=== PATIENT | male | born 1975 | race African-American/Black ===

== ENCOUNTER 2020-03-26 11:58 | Outpatient (REF) | payer MEDICARE, MEDICAID, SELFPAY ==
--- NOTE | 2020-03-26 | US_ITS ---
EXAMINATION: US RETROPERITONEAL LIMITED (RENAL ONLY) CLINICAL INFORMATION: Nephrolithiasis.. COMPARISON: None TECHNIQUE: Routine grayscale imaging of kidneys was performed. FINDINGS: RIGHT KIDNEY: 10.8 x 4.1 x 6.1 cm (SAG x AP x TRV). The kidney is normal in size, contour, and echogenicity. Renal cortical thickness is normal. No calculi or focal parenchymal lesions. No hydronephrosis. LEFT KIDNEY: 11.1 x 6.6 x 5.3 cm (SAG x AP x TRV). The kidney is normal in size, contour, and echogenicity. Renal cortical thickness is normal. No calculi or focal parenchymal lesions. No hydronephrosis. US/US renal BI IMPRESSION: Unremarkable renal ultrasound.
== END 2020-03-26 11:59 | disposition home or self-care (01) ==
LOC: HO.US 11:58
PROVIDERS: PCP Internal Medicine; Visit Provider Urology
DX: N20.0 Calculus of kidney (principal)
CPT/HCPCS: 76775

== ENCOUNTER 2020-07-09 09:08 | Emergency (ER) | payer OTHER, SELFPAY ==
[2020-07-09 09:45] VITALS: BP 108/71; PULSE 70; RESP 16; TEMP 37.1; O2SAT 97; BMI 23.1
[2020-07-09] MEDS: oxyCODONE HCl Immed Release 5 MG TABLET PO (10:38)
[2020-07-09] MEDS: Cyclobenzaprine HCl 10 MG TABLET PO (10:39)
[2020-07-09] MEDS: Acetaminophen 325 MG TABLET 650 MG PO (10:39)
[2020-07-09] MEDS: Lidocaine 4 % Patch ADH..PATCH 1 PATCH TRANSDERMA (10:40)
--- NOTE | 2020-07-09 10:45 | ED_ITS ---
HPI - Back Pain/Injury General Chief Complaint: Back Pain/Injury Stated Complaint: low back pain Time Seen by Provider: 07/09/20 10:03 Source: patient Mode of arrival: ambulatory History of Present Illness HPI Narrative: 44-year-old male with past medical history of hypertension presenting to the ED complaining of acute onset right-sided low back pain s/p show leveling snow this morning. Reports lifted wheel barrel and instantly had pain. Reports pain should around/to right buttock. Denies numbness, tingling, weakness, urinary incontinence/retention, direct trauma/fever MD elicited complaint: back pain Related Data Home Medications Medication Instructions Recorded Confirmed hydrochlorothiazide 25 mg tablet 25 mg PO DAILY 02/28/20 peg-electrolyte solution 420 gram 240 ml PO Q10M 02/28/20 oral solution quetiapine 50 mg tablet 50 mg PO DAILY 02/28/20 tramadol 50 mg tablet 50 mg PO DAILY 02/28/20 zolpidem 10 mg tablet 10 mg PO BEDTIME PRN 02/28/20 Previous Rx's Medication Instructions Recorded acetaminophen [Tylenol Extra 500 mg PO Q6H PRN #20 tab 07/09/20 Strength] cyclobenzaprine 5 mg PO Q8H PRN 5 Days #14 tab 07/09/20 hydrocodone-acetaminophen 1 tab PO Q8H PRN 3 Days #9 tab 07/09/20 lidocaine [Lidoderm] 1 patch TOPICAL DAILY PRN #30 ea 07/09/20 MDD remove after 12 hours Allergies Allergy/AdvReac Type Severity Reaction Status Date / Time hydrochlorothiazide Allergy Unknown chills Verified 04/18/19 00:00 ibuprofen Allergy Unknown stomach Verified 04/18/19 00:00 upset No Known Allergies Allergy Unverified 02/16/20 17:22 [No Known Allergies*] Review of Systems Review of Systems: Constitutional: No Weight loss, No Fever, No Chills Cardiovascular: No Chest Pain, No SOB Respiratory: No Cough, No Sputum, No Wheezing Gastrointestinal: No Abdominal pain Genitourinary:No Hematuria, No Urinary Incontinence/Retention, No Urgency Musculoskeletal: No joint pain, No Myalgias, No Joint Swelling Skin: No Skin Lesions, No rash Neuro: No Weakness, No Numbness, No Paresthesias Yes all other systems are reviewed and are negative Neurologic: Denies Sensory deficit (Neuro) PMFSH Past Medical History Attestation statement: The following information was validated with the patient. Medical History (Updated 07/09/20 @ 10:45 by PEYTON Rocha) Deafness in left ear HTN (hypertension) Surgical History (Updated 02/28/20 @ 16:11 by DIDIER Soto) History of surgery of head Family History Family History (Updated 02/28/20 @ 16:13 by DIDIER Soto) Father HTN (hypertension) Arthritis Mother HTN (hypertension) Diabetes mellitus Cancer Maternal Uncle Colon cancer Social History Social History Smoking Status: Current every day smoker Smoked in Last 30 Days: Yes Use of substances other than those prescribed or required for medical reasons: No Advance Directives: No Advance Directives Information Provided: Yes Physical Exam Vital Signs: Vital Signs: Last Vital Signs Temp 98.8 F 07/09/20 09:45 Pulse 70 07/09/20 09:45 Resp 16 07/09/20 09:45 BP 108/71 07/09/20 09:45 Pulse Ox 97 07/09/20 09:45 Body Mass Index 23.1 Const: General: cooperative and healthy appearing Orientation/consciousness: patient oriented x3 Limitations: no limitations HENMT: Head: Yes normal to inspection Ears: hearing grossly normal bilaterally General nose exam: Normal external nose present Face and sinus: Yes normal facial exam Eyes: General: appearance normal, both eyes and all related structures EOM: EOMs intact bilaterally Neck: Neck: Yes normal visual inspection and Yes no meningeal signs Chest: Chest palpation & inspection: normal inspection of the chest Resp: Effort & Inspection: normal respiratory effort GI: Inspection: Yes normal to inspection Palpation (GI): Soft to palpation, nontender, no guarding and not rigid : General: Yes no CVA tenderness Back/Spine/Pelvis: Other: No midline thoracic/lumbar spinous tenderness. + right-sided low lower thoracic/lumbar MSK tenderness to palpation and palpable muscle spasming. Back: no CVA tenderness Skin: Rashes: no rashes Wounds: no wounds Neuro: Other: Strength intact throughout. No saddle anesthesia. Ambulating with steady gait General: patient oriented x3, gait normal, tone normal, moves all extremities and no meningeal signs Gait exam (Neuro): Normal gait present Motor exam (neuro): 5/5 motor strength present throughout Sensory Exam: No Sensory deficit (Neuro) Extrem: General: Yes normal to inspection MDM - Back Pain/Injury MDM Narrative Medical decision making narrative: On exam VSS, NAD/well-appearing, no midline spinous tenderness throughout. No red flag symptoms. Likely muscle spasm/strain. Low concern for cauda equina/cord compression or fracture Discharge Plan Discharge Clinical Impression: Strain of lumbar region Qualifiers: Encounter type: initial encounter Qualified Code(s): S39.012A - Strain of muscle, fascia and tendon of lower back, initial encounter Patient Disposition: Home, Self-Care Instructions: Acute Low Back Pain (ED) Additional Instructions: Your pain is likely musculoskeletal Flexeril is a muscle relaxer, take at night as it makes you drowsy, do not drive, drink alcohol, or operate machinery while taking it Lidoderm patches are numbing patches, apply to painful area Lapine as an opiate pain medication, take only when pain is severe for the next 3 days In addition take Tylenol at home, however do not exceed 4 g Tylenol 1 day, and be aware Lapine was Tylenol mixed in If symptoms persist or worsen, pain becomes unbearable, you developed urinary retention or incontinence, or weakness return to the ED Es probable que veliz dolor sea musculoesquel?eddie Flexeril es un relajante muscular, t?calle por la noche ya que le produce somnolencia, no conduzca, no brendon alcohol ni maneje maquinaria mientras lo nik. Los parches de Lidoderm son parches adormecedores, se aplican al ?giovanni dolorida Lapine rob analg?sico opi?dispensing optician apprentice, t?calle solo cuando el dolor sea intenso loren los pr?ximos 3 d?as Adem?s, tome Tylenol en casa, sin embargo, no exceda los 4 g de Tylenol 1 d?a, y tenga en cuenta que Lapine fue mezclado con Tylenol Si los s?ntomas persisten o empeoran, el dolor se vuelve insoportable, desarroll? retenci?n urinaria o incontinencia, o debilidad regrese al servicio de urgencias Prescriptions: New acetaminophen [Tylenol Extra Strength] 500 mg tablet 500 mg PO Q6H PRN (Reason: pain or fever) Qty: 20 RF: 0 lidocaine [Lidoderm] 5 % adhesive patch,medicated 1 patch topical DAILY MDD remove after 12 hours PRN (Reason: pain) Qty: 30 RF: 0 cyclobenzaprine 5 mg tablet 5 mg PO Q8H PRN (Reason: pain (scale score 7-10)) 5 Days Qty: 14 RF: 0 hydrocodone-acetaminophen 5-325 mg tablet 1 tab PO Q8H PRN (Reason: severe pain) 3 Days Qty: 9 RF: 0 Referrals: Katie Gaona MD [Primary Care Provider] - 3 days Print Language: [place]
== END 2020-07-09 11:05 | disposition home or self-care (01) ==
PROVIDERS: Emergency Provider Emergency Medicine; PCP Internal Medicine
DX: S39.012A Strain of muscle, fascia and tendon of lower back, initial encounter (principal); X50.0XXA Overexertion from strenuous movement or load, initial encounter; Y93.H1 Activity, digging, shoveling and raking; Y92.014 Private driveway to single-family (private) house as the place of occurrence of the external cause; Y99.9 Unspecified external cause status
CPT/HCPCS: 99283

== ENCOUNTER 2021-01-06 21:46 | Emergency (ER) | payer OTHER, SELFPAY ==
[2021-01-06 22:07] VITALS: BP 112/72; PULSE 91; RESP 18; TEMP 37; O2SAT 97; BMI 23.1
== END 2021-01-07 00:58 | disposition left against medical advice (07) ==
PROVIDERS: Emergency Provider Emergency Medicine
DX: R11.10 Vomiting, unspecified (principal); R10.13 Epigastric pain; R50.9 Fever, unspecified; Z79.899 Other long term (current) drug therapy
CPT/HCPCS: 99282; 99283

== ENCOUNTER 2021-03-04 10:23 | Outpatient (REF) | payer OTHER, SELFPAY ==
[2021-03-04 11:41] LABS: Appearance Urine CLEAR; Color Urine YELLOW; Glucose Urine UA NEG (NEG); Leukocyte Esterase Urine NEG (NEG); Nitrite Urine NEG (NEG); Urine Blood NEG (NEG); Urine Ketones NEG (NEG); Urine Protein NEG (NEG-TRACE)
[2021-03-04 11:52] LABS: Syphilis Screen Nonreactive (Nonreactive)
[2021-03-04 14:06] LABS: CT PCR NOT DETECTED (Not Detect.); NG PCR NOT DETECTED (Not Detect.)
[2021-03-12 11:51] LABS: HSV 1 IgM IFA Negative (Negative); HSV 2 IgM IFA Negative (Negative)
== END 2021-03-04 10:24 | disposition home or self-care (01) ==
LOC: HO.LAB 10:23
PROVIDERS: PCP Internal Medicine; Visit Provider Internal Medicine
DX: Z11.4 Encounter for screening for human immunodeficiency virus [HIV] (principal); Z11.3 Encounter for screening for infections with a predominantly sexual mode of transmission; R21 Rash and other nonspecific skin eruption; R30.0 Dysuria
CPT/HCPCS: 81003; 86695; 86696; 86780; 87491; 87591

== ENCOUNTER 2022-03-30 05:07 | Emergency (ER) | payer OTHER, SELFPAY ==
--- NOTE | ~2022-03-30 | CT_ITS ---
EXAMINATION: CT ABDOMEN AND PELVIS WITHOUT CONTRAST CLINICAL INFORMATION: Left flank pain COMPARISON: CT 03/18/2019 . Ultrasound 03/26/2020 TECHNIQUE: Multidetector volumetric imaging was performed from the superior aspect of the liver through the pubic symphysis. Sagittal and coronal reformatted images were obtained on the technologist's workstation. This CT examination was performed using dose optimization techniques as appropriate, variously including the following: *Automated exposure control *Adjustment of mA and/or kV according to patient size (this includes techniques or standardized protocols for targeted exams where dose is matched to indication/reason for exam; i.e. extremities or head) *Use of iterative reconstruction technique DLP: 482 mGy-cm FINDINGS: LUNG BASES: Mild bibasilar dependent changes. LIVER, GALLBLADDER, AND BILIARY TREE: The liver is normal in size, shape, and attenuation. No focal hepatic lesion or biliary ductal dilatation is present. The gallbladder is unremarkable with no evidence of radiopaque gallstones, gallbladder wall thickening, or obvious pericholecystic inflammatory changes. PANCREAS: Unremarkable. SPLEEN: Unremarkable. ADRENAL GLANDS: Unremarkable. KIDNEYS AND URETERS: The kidneys are normal in size, shape, and attenuation. No hydronephrosis, hydroureter. Tiny punctate nonobstructing calculi in the right kidney. Portions of the ureters are difficult to follow, but no radiodense calculi are seen in the expected course of the ureters. No perinephric stranding. BLADDER: Unremarkable. GASTROINTESTINAL TRACT: The small and large bowel are unremarkable. The appendix is unremarkable. No evidence of bowel obstruction. Moderate volume stool in the large colon. No significant free fluid or free air. ABDOMINAL WALL: No significant hernia is appreciated. LYMPH NODES: No adenopathy seen. VASCULAR: Unremarkable. PELVIC VISCERA: Unremarkable. OSSEOUS STRUCTURES: Unremarkable. CT/CT abdomen pelvis wo IV con IMPRESSION: No acute process is identified in the abdomen or pelvis. Similar appearance of tiny punctate nonobstructing calculi in the right kidney. Cause of the patient's symptoms has not been determined determined by CT. Fleischner guidelines were followed.
[2022-03-30 05:17] VITALS: BP 119/78; PULSE 76; RESP 20; TEMP 36.7; O2SAT 100; BMI 23.1
[2022-03-30 05:34] LABS: Basophils Absolute Auto 0.1 X10*3/uL (0.0-0.2); Basophils Percent Auto 0.8 % (0-2); Eosinophils Absolute Auto 0.4 X10*3/uL (0.0-0.4); Eosinophils Percent Auto 4.1 % (0-4); Hemoglobin 14.3 g/dl (14.0-18.0); Imm Gran Abs Auto 0.07 X10*3/uL (0.00-0.03); Imm Gran Pct Auto 0.7 % (0.0-0.4); Lymphocytes Percent Auto 30.7 % (20-40); MANUAL DIFF FLAG NO; Mean Corpuscular HGB Conc 31.8 g/dl (31.0-36.0); Mean Corpuscular Hemoglobin 23.8 pg (27.0-33.0); Mean Corpuscular Volume 74.9 fL (80.0-98.0); Mean Platelet Volume 8.8 fL (9.4-12.4); Monocytes Absolute Auto 0.8 X10*3/uL (0.1-1.2); Monocytes Percent Auto 8.3 % (2-11); Neutrophils Absolute Auto 5.4 x10*3/uL (2.0-8.3); Neutrophils Percent Auto 55.4 % (45-73); Platelet Count 304 X10*3/uL (160-400); Red Blood Count 6.01 X10*6/uL (4.60-5.80); Red Cell Distribution Width 14.9 % (11.0-16.0); White Blood Count 9.8 X10*3/uL (4.8-10.8)
--- NOTE | 2022-03-30 05:40 | PC.NURSE ---
Patient provided with a cup and ambulates to restroom to provide urine sample- he is unable at this time. Order checked off in worklist but urine NOT yet sent. Patient aware of need for sample.
[2022-03-30 05:52] LABS: Alanine Aminotransferase 19 U/L (0-40); Albumin Level 4.1 g/dL (3.5-5.0); Alkaline Phosphatase 85 U/L (39-117); Anion Gap 13 (12-20); Aspartate Amino Transferase 24 U/L (5-37); Bilirubin Total 0.3 mg/dL (0.0-1.0); Blood Urea Nitrogen 15 mg/dL (9-16); Calcium 9.3 mg/dL (8.4-10.2); Carbon Dioxide 28 mmol/L (22-29); Chloride 102 mmol/L (96-108); Creatinine Clr Calc Pharmacy 106.6; Estimated Glomerular Filt Rate > 60; Glucose Random 102 mg/dL (60-115); Lipase 56 U/L (8-78); Potassium 4.7 mmol/L (3.3-5.1); Sodium 138 mmol/L (135-145); Total Protein 6.8 g/dL (6.5-8.0)
--- NOTE | 2022-03-30 06:59 | ED_ITS ---
HPI - Abdominal Pain General Chief Complaint: Abdominal Pain Stated Complaint: abd pain? Time Seen by Provider: 03/30/22 06:56 Source: patient Mode of arrival: ambulatory Limitations: no limitations History of Present Illness HPI narrative: [age] year years old male presented to the ED with a chief complaint of left flank pain radiated to the left groin, pain started at about 02:00, denies any nausea vomiting diarrhea fever. He states that he has no comorbidity. MD elicited complaint: flank pain Pertinent past history: none Onset (ago): hour(s) (5) Pain Consistency: constant Location: L flank Severity: moderate Quality: aching Radiation: L flank Migration to: LLQ Exacerbating factors: nothing Relieving factors: nothing Associated symptoms: denies other symptoms Related Data Home Medications Medication Instructions Recorded Confirmed quetiapine 50 mg tablet (Seroquel) 50 mg PO DAILY 02/28/20 07/16/21 zolpidem 10 mg tablet 10 mg PO BEDTIME PRN 02/28/20 07/16/21 alprazolam 1 mg tablet See Rx Instructions PO DAILY PRN 03/04/21 07/16/21 anxiety escitalopram oxalate 10 mg tablet 10 mg PO DAILY 03/04/21 07/16/21 melatonin 5 mg capsule 5 mg PO BEDTIME 03/04/21 07/16/21 Previous Rx's Medication Instructions Recorded acetaminophen 500 mg tablet 500 mg PO Q6H PRN pain or fever 07/09/20 (Tylenol Extra Strength) #20 tabs cyclobenzaprine 5 mg tablet 5 mg PO Q8H PRN pain (scale score 07/09/20 7-10) 5 days #14 tabs ketoconazole 2 % topical cream 1 appl topical BID PRN rash 15 07/16/21 days #15 grams Allergies Allergy/AdvReac Type Severity Reaction Status Date / Time hydrochlorothiazide Allergy Unknown chills Verified 07/16/21 10:31 ibuprofen Allergy Unknown stomach Verified 07/16/21 10:31 upset Review of Systems Constitutional: Reports no additional constitutional complaints Cardiovascular: Reports no additional cardiovascular complaints Gastrointestinal: Reports abdominal pain Reports system reviewed and no additional complaints, except as documented PMFSH Past Medical History Medical History COVID-19 Deafness in left ear CELESTE (generalized anxiety disorder) HTN (hypertension) Insomnia Mild recurrent major depression Surgical History History of surgery of head Family History Family History Father HTN (hypertension) Arthritis Mother HTN (hypertension) Diabetes mellitus Cancer Maternal Uncle Colon cancer Social History Social History Housing: House Alcohol intake: current Alcohol intake frequency: holidays/special occasions only Patient Tobacco Use Status: Never used Tobacco Cigarettes Per Day: 4 e-Cigarette/Vaping Use: Never Used Second Hand Smoke Exposure: Yes Use of substances other than those prescribed or required for medical reasons: No Advance Directives: No service: No Current occupational status: disabled Physical Exam ED Vital Signs: Vital Signs - 24 hr 03/30/22 05:17 Temperature 98.1 F Pulse Rate 76 Respiratory Rate 20 Blood Pressure 119/78 Pulse Oximetry 100 Oxygen Delivery Method Room Air BMI result Body Mass Index 23.1 Const General: cooperative Nutritional Appearance: average body habitus Orientation/consciousness: patient oriented x3 Limitations: no limitations HENMT Head: Yes normal to inspection General nose exam: Normal external nose present Face and sinus: Yes normal facial exam Mouth: Normal oral and palatal mucosa present Throat: Yes posterior oropharynx normal Neck Neck: Yes normal visual inspection, Yes full ROM and Yes no lymphadenopathy Chest Chest palpation & inspection: normal inspection of the chest Resp Effort & Inspection: normal respiratory effort and able to speak in complete sentences Auscultation: clear to auscultation bilaterally Cardio Jugular venous distension: no JVD Rate: regular rate Rhythm: regular rhythm GI Inspection: Yes normal to inspection Palpation (GI): Soft to palpation and Tenderness to palpation present (GI) (left flank) Skin General skin exam: no rashes or lesions noted Neuro General: patient oriented x3 Course Reevaluation(s) Reevaluation #1: Pain-free, normal labs, urine normal,ct scan abdomen and pelvis no acute process,at this time will d/c the pt,the ethiology of the pain is unclear but he is pain free and w/u reassuring Time: 08:47 MDM - Abdominal Pain MDM Narrative Medical decision making narrative: Patient presented with left flank pain, radiated to the groin, working diagnosis is left ureteral stone, will get CT scan abdomen and pelvis analgesia fluids Lab Data Result diagrams: 03/30/22 05:25 03/30/22 05:25 Labs: Lab Results 03/30/22 03/30/22 03/30/22 Range/Units 05:25 05:25 06:56 WBC 9.8 (4.8-10.8) X10*3/uL RBC 6.01 H (4.60-5.80) X10*6/uL Hgb 14.3 (14.0-18.0) g/dl Hct 45.0 (42.0-52.0) % MCV 74.9 L (80.0-98.0) fL MCH 23.8 L (27.0-33.0) pg MCHC 31.8 (31.0-36.0) g/dl RDW 14.9 (11.0-16.0) % Plt Count 304 (160-400) X10*3/uL MPV 8.8 L (9.4-12.4) fL Immature Gran % (Auto) 0.7 H (0.0-0.4) % Neut % (Auto) 55.4 (45-73) % Lymph % (Auto) 30.7 (20-40) % [place] % (Auto) 8.3 (2-11) % Eos % (Auto) 4.1 H (0-4) % Baso % (Auto) 0.8 (0-2) % Lymph # (Auto) 3.0 (1.2-4.9) X10*3/uL [place] # (Auto) 0.8 (0.1-1.2) X10*3/uL Eos # (Auto) 0.4 (0.0-0.4) X10*3/uL Baso # (Auto) 0.1 (0.0-0.2) X10*3/uL Abs Immat Gran (auto) 0.07 H (0.00-0.03) X10*3/uL Absolute Neuts (auto) 5.4 (2.0-8.3) x10*3/uL Absolute Nucleated RBC 0.000 (0.0-0.012) X10*3/uL Nucleated RBC % (auto) 0.0 (0.0-0.2) /100WBC Sodium 138 (135-145) mmol/L Potassium 4.7 (3.3-5.1) mmol/L Chloride 102 (96-108) mmol/L Carbon Dioxide 28 (22-29) mmol/L Anion Gap 13 (12-20) BUN 15 (9-16) mg/dL Creatinine 1.01 (0.5-1.4) mg/dL Estim Creat Clear Calc 106.6 Estimated GFR > 60 Random Glucose 102 (60-115) mg/dL Calcium 9.3 (8.4-10.2) mg/dL Total Bilirubin 0.3 (0.0-1.0) mg/dL AST 24 (5-37) U/L ALT 19 (0-40) U/L Alkaline Phosphatase 85 (39-117) U/L Total Protein 6.8 (6.5-8.0) g/dL Albumin 4.1 (3.5-5.0) g/dL Lipase 56 (8-78) U/L Urine Color Yellow Urine Appearance Clear Urine pH 6.5 (5.0-9.0) Ur Specific [place] 1.025 (1.005-1.025) Urine Protein Negative (Neg-Trace) mg/dL Urine Glucose (UA) Negative (Negative) mg/dL Urine Ketones Negative (Negative) mg/dL Urine Blood Negative (Negative) Urine Nitrite Negative (Negative) Ur Leukocyte Esterase Trace H (Negative) Urine RBC 0-2 (0-2) /HPF Urine WBC 0-5 (0-5) /HPF Ur Squamous Epith Cells 0-2 (0-2) /HPF Urine Bacteria None Seen (None Seen) Hyaline Casts 0-2 (0-2) /LPF 03/30/22 Range/Units 07:11 WBC (4.8-10.8) X10*3/uL RBC (4.60-5.80) X10*6/uL Hgb (14.0-18.0) g/dl Hct (42.0-52.0) % MCV (80.0-98.0) fL MCH (27.0-33.0) pg MCHC (31.0-36.0) g/dl RDW (11.0-16.0) % Plt Count (160-400) X10*3/uL MPV (9.4-12.4) fL Immature Gran % (Auto) (0.0-0.4) % Neut % (Auto) (45-73) % Lymph % (Auto) (20-40) % [place] % (Auto) (2-11) % Eos % (Auto) (0-4) % Baso % (Auto) (0-2) % Lymph # (Auto) (1.2-4.9) X10*3/uL [place] # (Auto) (0.1-1.2) X10*3/uL Eos # (Auto) (0.0-0.4) X10*3/uL Baso # (Auto) (0.0-0.2) X10*3/uL Abs Immat Gran (auto) (0.00-0.03) X10*3/uL Absolute Neuts (auto) (2.0-8.3) x10*3/uL Absolute Nucleated RBC (0.0-0.012) X10*3/uL Nucleated RBC % (auto) (0.0-0.2) /100WBC Sodium (135-145) mmol/L Potassium (3.3-5.1) mmol/L Chloride (96-108) mmol/L Carbon Dioxide (22-29) mmol/L Anion Gap (12-20) BUN (9-16) mg/dL Creatinine (0.5-1.4) mg/dL Estim Creat Clear Calc Estimated GFR Random Glucose (60-115) mg/dL Calcium (8.4-10.2) mg/dL Total Bilirubin (0.0-1.0) mg/dL AST (5-37) U/L ALT (0-40) U/L Alkaline Phosphatase (39-117) U/L Total Protein (6.5-8.0) g/dL Albumin (3.5-5.0) g/dL Lipase 44 (8-78) U/L Urine Color Urine Appearance Urine pH (5.0-9.0) Ur Specific [place] (1.005-1.025) Urine Protein (Neg-Trace) mg/dL Urine Glucose (UA) (Negative) mg/dL Urine Ketones (Negative) mg/dL Urine Blood (Negative) Urine Nitrite (Negative) Ur Leukocyte Esterase (Negative) Urine RBC (0-2) /HPF Urine WBC (0-5) /HPF Ur Squamous Epith Cells (0-2) /HPF Urine Bacteria (None Seen) Hyaline Casts (0-2) /LPF Imaging Data CT scan - abdomen: Radiologist's impression: GASTROINTESTINAL TRACT: The small and large bowel are unremarkable. The appendix is unremarkable. No evidence of bowel obstruction. Moderate volume stool in the large colon. No significant free fluid or free air. ABDOMINAL WALL: No significant hernia is appreciated.? LYMPH NODES: No adenopathy seen. VASCULAR: Unremarkable. PELVIC VISCERA: Unremarkable.? OSSEOUS STRUCTURES: Unremarkable.? CT/CT abdomen pelvis wo IV con IMPRESSION: No acute process is identified in the abdomen or pelvis. Similar appearance of tiny punctate nonobstructing calculi in the right kidney. Cause of the patient's symptoms has not been determined determined by CT.? ? Fleischner guidelines were followed. Dictated By: Sandra Lugo Discharge Plan Discharge Clinical Impression: Abdominal pain Patient Disposition: Home, Self-Care Instructions: Abdominal Pain (ED) Prescriptions: No Action acetaminophen [Tylenol Extra Strength] 500 mg tablet 500 mg PO Q6H PRN (Reason: pain or fever) Qty: 20 0RF cyclobenzaprine 5 mg tablet 5 mg PO Q8H PRN (Reason: pain (scale score 7-10)) 5 Days Qty: 14 0RF melatonin 5 mg capsule 5 mg PO BEDTIME escitalopram oxalate 10 mg tablet 10 mg PO DAILY alprazolam 1 mg tablet See Rx Instructions PO DAILY PRN (Reason: anxiety) Rx Instructions: 1/2 to 1 tablet PO daily PRN; ketoconazole 2 % cream 1 appl topical BID PRN (Reason: rash) 15 Days Qty: 15 1RF zolpidem 10 mg tablet 10 mg PO BEDTIME PRN quetiapine [Seroquel] 50 mg tablet 50 mg PO DAILY Referrals: Katie Gaona MD [Primary Care Provider] - 2 days
[2022-03-30 07:02] LABS: Appearance Urine Clear; Color Urine Yellow; Glucose Urine UA Negative (Negative); Leukocyte Esterase Urine Trace (Negative); Nitrite Urine Negative (Negative); PH 6.5 (5.0-9.0); Specific Gravity - Urine 1.025 (1.005-1.025); UMIC TRIGGER UACC YES; Urine Blood Negative (Negative); Urine Ketones Negative (Negative); Urine Protein Negative (Neg-Trace)
[2022-03-30 07:07] LABS: Bacteria Urine None Seen (None Seen); Hyaline Casts Urine 0-2 /LPF (0-2); RBC Urine 0-2 /HPF (0-2); Squamous Epithelial Cell Urine 0-2 /HPF (0-2); WBC Urine 0-5 /HPF (0-5)
[2022-03-30] MEDS: 0.9 % Sodium Chloride 1,000 ML 999 ML IVCONT (07:11)
[2022-03-30] MEDS: HYDROmorphone HCl 0.5 MG/0.5 ML SYRINGE IVPUSH (07:15)
[2022-03-30 07:46] LABS: Lipase 44 U/L (8-78)
== END 2022-03-30 09:13 | disposition home or self-care (01) ==
PROVIDERS: Emergency Provider Emergency Medicine; PCP Internal Medicine
DX: R10.9 Unspecified abdominal pain (principal); I10 Essential (primary) hypertension; Z79.899 Other long term (current) drug therapy
CPT/HCPCS: 36415; 74176; 80053; 81001; 83690; 85025; 96361; 96374; 99284; J1170

== ENCOUNTER 2023-02-18 14:15 | Emergency (ER) | payer OTHER, SELFPAY ==
--- NOTE | ~2023-02-18 | US_ITS ---
EXAMINATION: US ABDOMEN LIMITED CLINICAL INFORMATION: Right upper quadrant pain.. COMPARISON: None available. TECHNIQUE: Real-time imaging of the right upper quadrant abdominal viscera. FINDINGS: PANCREAS: Normal. LIVER: Normal. The liver is normal in size. The liver contour is normal. Parenchymal echogenicity is normal. No focal hepatic lesion. There is no intrahepatic biliary duct dilatation seen. GALLBLADDER: There is mild tenderness in the right upper quadrant by ultrasound probe The gallbladder is physiologically distended without evidence of stones, sludge, polyps, wall thickening or pericholecystic fluid. Gallbladder wall thickness is 0.3). COMMON BILE DUCT: Normal in caliber measuring 0.3 cm in diameter. RIGHT KIDNEY: Normal. No hydronephrosis. No renal calculi or focal parenchymal lesions. The kidney measures 10.3 cm in maximum dimension. FREE FLUID: None. US/US abdomen limited IMPRESSION: Mild tenderness in right upper quadrant by ultrasound probe but no gallstones. Rest of the right upper quadrant ultrasound is unremarkable.
--- NOTE | ~2023-02-18 | CT_ITS ---
EXAMINATION: CT ABDOMEN AND PELVIS WITHOUT CONTRAST CLINICAL INFORMATION: Flank pain COMPARISON: 03/30/2022 TECHNIQUE: Multidetector volumetric imaging was performed from the superior aspect of the liver through the pubic symphysis. Sagittal and coronal reformatted images were obtained on the technologist's workstation. This CT examination was performed using dose optimization techniques as appropriate, variously including the following: *Automated exposure control *Adjustment of mA and/or kV according to patient size (this includes techniques or standardized protocols for targeted exams where dose is matched to indication/reason for exam; i.e. extremities or head) *Use of iterative reconstruction technique DLP: 416 mGy-cm FINDINGS: LUNG BASES: Mild scarring or atelectasis anterior right lung base LIVER, GALLBLADDER, AND BILIARY TREE: The liver is normal in size, shape, and attenuation. No focal hepatic lesion or biliary ductal dilatation is present. The gallbladder is unremarkable with no evidence of radiopaque gallstones, gallbladder wall thickening, or obvious pericholecystic inflammatory changes. PANCREAS: Region the pancreas is is not adequately seen. Lack of intravenous and oral contrast. No free fluid in the area. SPLEEN: Unremarkable. ADRENAL GLANDS: Unremarkable. KIDNEYS AND URETERS: There is no hydronephrosis. Several small nonobstructing calculi are noted BLADDER: Bladder is decompressed. GASTROINTESTINAL TRACT: Again lack of oral and intravenous contrast limits this exam. Overall the bowel pattern is felt to be nonobstructing. The appendix is within normal limits. ABDOMINAL WALL: No significant hernia is appreciated. LYMPH NODES: Again limited from lack of contrast. No bulky adenopathy is felt to be present. VASCULAR: Unremarkable. PELVIC VISCERA: Unremarkable. OSSEOUS STRUCTURES: Degenerative changes are noted in the lumbar sacral spine CT/CT abdomen pelvis wo IV con IMPRESSION: This exam is limited from lack of oral and intravenous contrast. Densely packed abdominal structures Several small nonobstructing right renal calculi. Largest may measure 2 mm. No evidence of ureteral stone or obstruction. Overall the bowel pattern is nonobstructing. No free fluid. Fleischner guidelines were followed.
[2023-02-18 14:23] VITALS: BP 122/79; PULSE 69; RESP 19; TEMP 36.6; O2SAT 98; BMI 23.2
--- NOTE | 2023-02-18 14:23 | ED_ITS ---
HPI - General Adult General Chief complaint: Abdominal Pain Stated complaint: abd and back pain Related Data Home Medications Medication Instructions Recorded Confirmed quetiapine 50 mg tablet (Seroquel) 50 mg PO DAILY 02/28/20 07/16/21 zolpidem 10 mg tablet 10 mg PO BEDTIME PRN 02/28/20 07/16/21 alprazolam 1 mg tablet See Rx Instructions PO DAILY PRN 03/04/21 07/16/21 anxiety escitalopram oxalate 10 mg tablet 10 mg PO DAILY 03/04/21 07/16/21 melatonin 5 mg capsule 5 mg PO BEDTIME 03/04/21 07/16/21 Previous Rx's Medication Instructions Recorded acetaminophen 500 mg tablet 500 mg PO Q6H PRN pain or fever 07/09/20 (Tylenol Extra Strength) #20 tabs cyclobenzaprine 5 mg tablet 5 mg PO Q8H PRN pain (scale score 07/09/20 7-10) 5 days #14 tabs ketoconazole 2 % topical cream 1 appl topical BID PRN rash 15 07/16/21 days #15 grams Allergies Allergy/AdvReac Type Severity Reaction Status Date / Time hydrochlorothiazide Allergy Unknown chills Verified 02/18/23 14:23 ibuprofen Allergy Unknown stomach Verified 02/18/23 14:23 upset PMFSH Past Medical History Medical History COVID-19 Deafness in left ear CELESTE (generalized anxiety disorder) HTN (hypertension) Insomnia Mild recurrent major depression Surgical History History of surgery of head Family History Family History Father HTN (hypertension) Arthritis Mother HTN (hypertension) Diabetes mellitus Cancer Maternal Uncle Colon cancer Social History Social History Housing: House Alcohol intake: current Alcohol intake frequency: holidays/special occasions only Patient Tobacco Use Status: Never used Tobacco Cigarettes Per Day: 4 e-Cigarette/Vaping Use: Never Used Second Hand Smoke Exposure: Yes Advance Directives: No Advance Directives Information Provided: No service: No Current occupational status: disabled Physical Exam ED Vital Signs: BMI result Body Mass Index 23.2 Course Course Course Narrative: This is a rapid medical exam: Additional HPI, ROS, PE not included below will be deferred to primary provider. Patient is a 47-year-old Turkish-speaking male presenting to the emergency department with complaint of sudden onset lower back pain radiating to right side of abdomen. Was outside doing yard work when pain began. Reports nausea, denies vomiting. Reports history of kidney stones. Tender RUQ on exam. Plan: UA, basic labs, RUQ US Medications Administered Discontinued Medications Generic Name Dose Route Start Last Admin Trade Name Freq PRN Reason Stop Dose Admin Acetaminophen 975 mg 02/18/23 20:28 02/18/23 20:30 Acetaminophen 325 Mg Tablet PO 02/18/23 20:29 975 mg ONCE ONE Administration Medical Decision Making Lab Data 02/18/23 14:35 02/18/23 14:35 Labs: Lab Results 02/18/23 Range/Units 14:35 WBC 10.3 (4.8-10.8) X10*3/uL RBC 6.27 H (4.60-5.80) X10*6/uL Hgb 15.1 (14.0-18.0) g/dl Hct 46.7 (42.0-52.0) % MCV 74.5 L (80.0-98.0) fL MCH 24.1 L (27.0-33.0) pg MCHC 32.3 (31.0-36.0) g/dl RDW 16.9 H (11.0-16.0) % Plt Count 293 (160-400) X10*3/uL MPV 8.9 L (9.4-12.4) fL Immature Gran % (Auto) 0.5 H (0.0-0.4) % Neut % (Auto) 65.9 (45-73) % Lymph % (Auto) 25.7 (20-40) % Bertie % (Auto) 6.7 (2-11) % Eos % (Auto) 0.4 (0-4) % Baso % (Auto) 0.8 (0-2) % Lymph # (Auto) 2.7 (1.2-4.9) X10*3/uL Bertie # (Auto) 0.7 (0.1-1.2) X10*3/uL Eos # (Auto) 0.0 (0.0-0.4) X10*3/uL Baso # (Auto) 0.1 (0.0-0.2) X10*3/uL Abs Immat Gran (auto) 0.05 H (0.00-0.03) X10*3/uL Absolute Neuts (auto) 6.8 (2.0-8.3) x10*3/uL Absolute Nucleated RBC 0.000 (0.0-0.012) X10*3/uL Nucleated RBC % (auto) 0.0 (0.0-0.2) /100WBC Sodium 138 (135-145) mmol/L Potassium 4.4 (3.3-5.1) mmol/L Chloride 107 (96-108) mmol/L Carbon Dioxide 26 (22-29) mmol/L Anion Gap 9 L (12-20) BUN 9 (9-16) mg/dL Creatinine 0.82 (0.5-1.4) mg/dL Estim Creat Clear Calc 130.7 Estimated GFR > 60 Random Glucose 92 (60-115) mg/dL Calcium 9.1 (8.4-10.2) mg/dL Total Bilirubin 0.4 (0.0-1.0) mg/dL AST 17 (5-37) U/L ALT 14 (0-40) U/L Alkaline Phosphatase 65 (39-117) U/L Total Protein 7.1 (6.5-8.0) g/dL Albumin 4.1 (3.5-5.0) g/dL Lipase 17 (8-78) U/L Urine Color Yellow Urine Appearance Clear Urine pH 6.0 (5.0-9.0) Ur Specific [place] 1.020 (1.005-1.025) Urine Protein Negative (Neg-Trace) mg/dL Urine Glucose (UA) Negative (Negative) mg/dL Urine Ketones Negative (Negative) mg/dL Urine Blood Negative (Negative) Urine Nitrite Negative (Negative) Ur Leukocyte Esterase Negative (Negative) Discharge Plan Discharge Clinical Impression: Lower back pain Qualifiers: Chronicity: acute Back pain laterality: unspecified Sciatica presence: u nspecified whether sciatica present Qualified Code(s): M54.50 - Low back pain, unspecified Patient Disposition: Left W/O Completing Treatment Prescriptions: No Action acetaminophen [Tylenol Extra Strength] 500 mg tablet 500 mg PO Q6H PRN (Reason: pain or fever) Qty: 20 0RF cyclobenzaprine 5 mg tablet 5 mg PO Q8H PRN (Reason: pain (scale score 7-10)) 5 Days Qty: 14 0RF melatonin 5 mg capsule 5 mg PO BEDTIME escitalopram oxalate 10 mg tablet 10 mg PO DAILY alprazolam 1 mg tablet See Rx Instructions PO DAILY PRN (Reason: anxiety) Rx Instructions: 1/2 to 1 tablet PO daily PRN; ketoconazole 2 % cream 1 appl topical BID PRN (Reason: rash) 15 Days Qty: 15 1RF zolpidem 10 mg tablet 10 mg PO BEDTIME PRN quetiapine [Seroquel] 50 mg tablet 50 mg PO DAILY Interventions: ED Discharge Assessment Last Done: 02/18/23 22:02 Discharge Date/Time: 02/18/23 22:02
[2023-02-18 14:40] LABS: MANUAL DIFF FLAG NO
[2023-02-18 14:42] LABS: Basophils Absolute Auto 0.1 X10*3/uL (0.0-0.2); Basophils Percent Auto 0.8 % (0-2); Eosinophils Percent Auto 0.4 % (0-4); Hematocrit 46.7 % (42.0-52.0); Hemoglobin 15.1 g/dl (14.0-18.0); Imm Gran Abs Auto 0.05 X10*3/uL (0.00-0.03); Imm Gran Pct Auto 0.5 % (0.0-0.4); Lymphocytes Absolute Auto 2.7 X10*3/uL (1.2-4.9); Lymphocytes Percent Auto 25.7 % (20-40); Mean Corpuscular HGB Conc 32.3 g/dl (31.0-36.0); Mean Corpuscular Hemoglobin 24.1 pg (27.0-33.0); Mean Corpuscular Volume 74.5 fL (80.0-98.0); Mean Platelet Volume 8.9 fL (9.4-12.4); Monocytes Absolute Auto 0.7 X10*3/uL (0.1-1.2); Monocytes Percent Auto 6.7 % (2-11); Neutrophils Absolute Auto 6.8 x10*3/uL (2.0-8.3); Neutrophils Percent Auto 65.9 % (45-73); Platelet Count 293 X10*3/uL (160-400); Red Blood Count 6.27 X10*6/uL (4.60-5.80); Red Cell Distribution Width 16.9 % (11.0-16.0); White Blood Count 10.3 X10*3/uL (4.8-10.8)
[2023-02-18 14:43] LABS: Appearance Urine Clear; Color Urine Yellow; Glucose Urine UA Negative (Negative); Leukocyte Esterase Urine Negative (Negative); Nitrite Urine Negative (Negative); Urine Blood Negative (Negative); Urine Ketones Negative (Negative); Urine Protein Negative (Neg-Trace)
[2023-02-18 14:56] LABS: Alanine Aminotransferase 14 U/L (0-40); Albumin Level 4.1 g/dL (3.5-5.0); Alkaline Phosphatase 65 U/L (39-117); Anion Gap 9 (12-20); Aspartate Amino Transferase 17 U/L (5-37); Bilirubin Total 0.4 mg/dL (0.0-1.0); Blood Urea Nitrogen 9 mg/dL (9-16); Calcium 9.1 mg/dL (8.4-10.2); Carbon Dioxide 26 mmol/L (22-29); Chloride 107 mmol/L (96-108); Creatinine Clr Calc Pharmacy 130.7; Estimated Glomerular Filt Rate > 60; Glucose Random 92 mg/dL (60-115); Lipase 17 U/L (8-78); Potassium 4.4 mmol/L (3.3-5.1); Sodium 138 mmol/L (135-145); Total Protein 7.1 g/dL (6.5-8.0)
[2023-02-18 19:45] VITALS: BP 139/73; PULSE 56; RESP 18; TEMP 37.1; O2SAT 100
[2023-02-18] MEDS: Acetaminophen 325 MG TABLET 975 MG PO (20:30)
== END 2023-02-18 22:02 | disposition left against medical advice (07) ==
PROVIDERS: Registered Nurse Emergency; Emergency Provider Emergency Medicine Emergency Medical Services; PCP Student in an Organized Health Care Education/Training Program
DX: M54.40 Lumbago with sciatica, unspecified side (principal); R10.11 Right upper quadrant pain; Z79.899 Other long term (current) drug therapy
CPT/HCPCS: 36415; 74176; 76705; 80053; 81003; 83690; 85025; 99283; 99284

== ENCOUNTER 2023-06-22 13:07 | Outpatient (AMB) | payer OTHER, SELFPAY ==
--- NOTE | 2023-06-22 13:37 | MHC.OFFWIV ---
Intake Vital Signs 06/22/23 13:38 Height 6 ft 2 in BP 132/76 Blood Pressure Location Lt brachial Position Sitting Pulse 80 Pulse Source Pulse Oximeter Pulse Oximetry (%) 98 Intake Visit Reasons: EP Back pain Intake Note: pt is here for c.o back pain, denies injury, pt states pain has been for 5 days Patient Tobacco Use Status: Never used Tobacco Mercury Cracking Tester Required: Yes Mercury Cracking Tester Language: Uzbek Allergies hydrochlorothiazide Allergy (Unknown, Verified 06/22/23 13:38) chills ibuprofen Allergy (Unknown, Verified 06/22/23 13:38) stomach upset Do you need a note to return to daycare/school/sports/work: Yes HPI HPI Comments History of Present Illness Details Patient presents to the walk in today with complaints of bilateral lower back pain X 5 days Pain improves with Tylenol Denies inciting injury decreased ROM secondary to pain Pain across lower back with some radiation down right thigh to the knee, does not radiate past the knee Denies numbness or tingling down the leg denies red flag symptoms including new loss of bowel, bladder or saddle anesthesia [facility] Medical History COVID-19 Deafness in left ear CELESTE (generalized anxiety disorder) HTN (hypertension) Insomnia Mild recurrent major depression Surgical History History of surgery of head Family History Father HTN (hypertension) Arthritis Mother HTN (hypertension) Diabetes mellitus Cancer Maternal Uncle Colon cancer Social History Housing: House Alcohol intake: current Alcohol intake frequency: holidays/special occasions only Patient Tobacco Use Status: Never used Tobacco Cigarettes Per Day: 4 e-Cigarette/Vaping Use: Never Used Second Hand Smoke Exposure: Yes service: No Current occupational status: disabled Review of Systems Const All systems reviewed & are unremarkable except as noted in HPI and below Physical Exam Vital Signs: Last Vital Signs Pulse 80 06/22/23 13:38 BP 132/76 06/22/23 13:38 Pulse Ox 98 06/22/23 13:38 General: awake, alert, oriented. Answers questions appropriately. Fully engaged in examination. Skin: warm, dry, intact HEENT: Normocephalic. Hearing intact. Cardiac: External chest normal in appearance. Respiratory: No cough, audible wheezing or stridor. Abdomen: without gross distension. MS: No obvious swelling or deformities. Able to stand on bilateral tiptoes and bilateral heels.? Able to transition from sit to stand unassisted. Ambulates with bilaterally normal heel strike and toe off ROM decreased, increased pain with forward flexion SLR neg bilaterally Facet loading positive Tender to palpation across lumbar, nontender over midline lumbar vertebrae Neurological: Oriented to person, place, time and situation. Thought process intact. No gait abnormalities appreciated. Psychiatric: Appropriate mood and affect. Good judgment and insight. Assessment & Plan Assessment & Plan (1) Strain of lumbar region: Code(s): S39.012A - Strain of muscle, fascia and tendon of lower back, initial encounter Qualifiers: Encounter type: initial encounter Qualified Code(s): S39.012A - Strain of muscle, fascia and tendon of lower back, initial encounter Plan Patient presented to the walk in with complaints of pain across lower back, worse with movement and tender to palpation X 5 days Cyclobenzaprine 5mg po TID as needed, advised on caution for use Lidocaine 5% topical patches, apply to most painful area, on for 12 hours off for 12 hours Gentle stretching to maintain ROM and core strength Follow up with pcp if no better, may benefit from physical therapy. Follow up at walk in for any new or worsening symptoms. Medications: New cyclobenzaprine 5 mg PO TID PRN 20 tabs 0RF muscle spasm lidocaine 5% leave on most painful area for up to 12 hrs 1 patch topical DAILY 30 ea 0RF Coding Level of Care Code Est Pt Level 4 (89451) Diagnoses Strain of lumbar region S39.012A Encounter type: initial encounter
[2023-06-22 13:38] VITALS: BP 132/76; PULSE 80; O2SAT 98
== END 2023-06-22 14:41 | disposition home or self-care (01) ==
PROVIDERS: PCP Internal Medicine; Visit Provider Registered Nurse Emergency
DX: S39.012A Strain of muscle, fascia and tendon of lower back, initial encounter (principal)
CPT/HCPCS: 99214

== ENCOUNTER 2023-09-07 11:56 | Outpatient (AMB) | payer OTHER, SELFPAY ==
[2023-09-07 12:05] VITALS: BP 112/80; BMI 20.9
--- NOTE | 2023-09-07 12:05 | MHC.PC.OV ---
Vital Signs 09/07/23 12:05 Height 6 ft 2 in Weight 163 lb BMI 20.9 BP 112/80 Blood Pressure Location Lt brachial Position Sitting Intake Visit Reasons: [facility] 08/25 chest pain Intake Note: Patient here for ED follow up [facility] 08/25 chest pain Network Support Manager Required: No Accompanied by: Significant Other Allergies hydrochlorothiazide Allergy (Unknown, Verified 09/07/23 12:36) chills ibuprofen Allergy (Unknown, Verified 09/07/23 12:36) stomach upset Medication List - Last Reconciled 09/07/23 by Katie Adan MD acetaminophen (Tylenol Extra Strength) 500 mg PO Q6H PRN alprazolam 1/2 to 1 tablet PO daily PRN; escitalopram oxalate 10 mg PO DAILY Tobacco use date assessed: 09/07/23 Dental Screening Dental Screen Date: 09/07/23 Did you have a dental visit in the last 12 months?: No Did you have a dental problem in the last 6 months where you did not have access to dental care?: No Was dental information given to patient?: Patient has dentist HPI HPI Comments History of Present Illness Details This is a 48-year-old male with mild recurrent major depression and anxiety that comes today accompanied by significant other for hospital discharge follow-up on 08/26/2023 due to symptomatic hypoglycemia. Patient went to ER due to chest pain and abdominal pain associated with dizziness and shakiness that resolved with a glass of orange juice. Blood glucose was taken by fingerstick and it shows 64. EKG, chest x-ray, labs and CT of chest was done and was normal. Will be referred to Endocrinology. Labs will be order. He has had multiple episodes at home with the same symptoms and I will order a Glucometer. Depression and anxiety are follow by Psychiatry and has been stable with medications. [facility] Medical History (Updated 09/07/23 @ 12:51 by Katie Adan MD) COVID-19 Insomnia CELESTE (generalized anxiety disorder) Mild recurrent major depression Deafness in left ear HTN (hypertension) Surgical History History of surgery of head Family History Father HTN (hypertension) Arthritis Mother HTN (hypertension) Diabetes mellitus Cancer Maternal Uncle Colon cancer Social History (Updated 09/07/23 @ 12:11 by DIDIER Fuentes) Housing: House Alcohol intake: current Alcohol intake frequency: holidays/special occasions only Alcohol type: beer Patient Tobacco Use Status: Current everyday Tobacco user Tobacco use type: Cigarette Cigarettes Per Day: 2 Smoked in Last 30 Days: Yes e-Cigarette/Vaping Use: Never Used Second Hand Smoke Exposure: Yes service: No Current occupational status: disabled Cognitive needs: No Hearing needs: No Vision needs: No Questionnaire PHQ-9 Over the last 2 weeks, how often have you been bothered by any of the following problems? 1. Little interest or pleasure in doing things: not at all 2. Feeling down, depressed, or hopeless: several days 3. Trouble falling or staying asleep, or sleeping too much: not at all 4. Feeling tired or having little energy: more than half the days 5. Poor appetite or overeating: nearly every day 6. Feeling bad about yourself - or that you are a failure or have let yourself or your family down: not at all 7. Trouble concentrating on things, such as reading the newspaper or watching television: not at all 8. Moving or speaking so slowly that other people could have noticed. Or the opposite - being so fidgety or restless that you have been moving around a lot more than usual: not at all 9. Thoughts that you would be better off or of hurting yourself in some way: not at all Total score: 6 Depression Screening Interpretation: Positive Depression Screening Follow-up: Existing condition and In treatment Depression Screening Done: Yes 49913 - PHQ-9 Billing: Yes Source: Developed by Drs. Joshua Lucas, Brisa Recio, Cesar Duran and colleagues, with an educational kristy from [employer]. Thrive Questionnaire Date Thrive assessed: 09/07/23 I am a: Patient What is your living situation today?: I have a steady place to live Within the past 12 months, did the food you bought not last and you didn't have the money to get more?: Never true Within the past 12 months, did you worry whether your food would run out before you got money to buy more?: Never true Do you have trouble paying for medicines?: No Do you have trouble getting transportation to medical appointments?: No Do you have trouble paying your heating and electricity bill?: No Do you have trouble taking care of your child, family member or friend?: No Do you have trouble with day-to-day activities such as bathing, preparing meals, shopping, managing finances, etc.?: No Are you currently unemployed and looking for a job?: No Are you interested in more education?: No Please select the resources that you would like help with: None Currently or been in a relationship where the following occur: no concerns reported THRIVE Score: 0 AUDIT C Alcohol Use Questionnaire (AUDIT-C) 1. How often do you have a drink containing alcohol?: Monthly or less 2. How many drinks containing alcohol do you have on a typical day when you are drinking?: 1 or 2 3. How often do you have six or more drinks on one occasion?: Never Total Score: 1 CELESTE-7 AMB Questionnaire CELESTE-7 Date CELESTE - 7 assessed: 09/07/23 Feeling nervous, anxious, or on edge: 2 = More than half the days Not being able to stop or control worryin = Not at all Worrying too much about different things: 0 = Not at all Trouble relaxin = Not at all Being so restless that it is hard to sit still: 0 = Not at all Becoming easily annoyed or irritable: 1 = Several days Feeling afraid as if something awful might happen: 0 = Not at all Total CELESTE-7 score (0-4 normal; 5-9 mild; 10-14 moderate; 15-21 severe): 3 Source: Developed by Drs. Joshua Lucas, Brisa Recio, Cesar Duran and colleagues, with an educational kristy from [employer]. CELESTE-7 Assessment Billing CELESTE-7 Assessment Tool: CELESTE-7 Assessment 13454 Review of Systems Const All systems reviewed & are unremarkable except as noted in HPI and below Eyes Reports no additional complaints, Denies change in vision and Denies other visual disturbances Card Denies chest pain at rest, Denies chest pain with activity, Denies edema, Denies irregular heart rhythm, Denies claudication, Denies dyspnea, Denies dyspnea on exertion, Denies orthopnea, Denies paroxysmal nocturnal dyspnea and Denies slow heart rate Resp Denies cough, Denies dyspnea and Denies dyspnea on exertion GI Denies abdominal pain, Denies change in bowel habits, Denies excessive flatus, Denies nausea and Denies vomiting Denies urinary hesitancy, Denies urinary incontinence and Denies urinary urgency Physical exam (Primary Care) Vital Signs: Last Vital Signs BP 112/80 09/07/23 12:05 BMI result Body Mass Index 20.9 Tobacco/Smoking Status: Tobacco use Status Tobacco use date assessed 09/07/23 09/07/23 12:15 Patient Tobacco Use Status Current everyday Tobacco 09/07/23 12:15 Tobacco use type Cigarette 09/07/23 12:15 e-Cigarette/Vaping Use Never Used 09/07/23 12:15 PHQ-9: PHQ-9 Score PHQ-9: Total score 6 09/07/23 12:15 Depression Screening Interpretation: Positive Depression Screening Follow-up: Existing condition and In treatment Thrive Assessment: Date of Thrive Assessment Date Thrive assessed 09/07/23 09/07/23 12:15 Currently or been in a relationship where the following occur: no concerns reported Resp Effort & Inspection: normal respiratory effort Auscultation: clear to auscultation bilaterally Cardio Jugular venous distension: no JVD Rate: regular rate Rhythm: regular rhythm Heart sounds: S1 normal heart sound present and S2 normal heart sound present Extrem General: Yes full ROM Assessment and Plan Assessment & Plan (1) Mild recurrent major depression: Code(s): F33.0 - Major depressive disorder, recurrent, mild Plan: Continue escitalopram. Follow-up with psychiatry. (2) CELESTE (generalized anxiety disorder): Code(s): F41.1 - Generalized anxiety disorder Plan: Continue benzodiazepines as needed. Follow-up with psychiatry. (3) Hypoglycemia: Code(s): E16.2 - Hypoglycemia, unspecified Plan: Referred to Endocrinology. (4) Hospital discharge follow-up: Code(s): Z09 - Encounter for follow-up examination after completed treatment for conditions other than malignant neoplasm Plan: Discharge date 08/26/2023 due to chest pain with symptomatic hypoglycemia. Fears markedly improved after drinking orange juice and eating. Orders: Orders Comprehensive [place]. Panel Fast Today E16.2 - Hypoglycemia, unspecified Free T4 (Free Thyroxine) Today R63.4 - Abnormal weight loss Thyroid Stimulating Hormone Today R63.4 - Abnormal weight loss Insulin Growth Factor 2 Today E16.2 - Hypoglycemia, unspecified Insulin Today E16.2 - Hypoglycemia, unspecified C Peptide Today E16.2 - Hypoglycemia, unspecified Referrals Endocrinology Referral E16.2 - Hypoglycemia, unspecified Medications: New blood-glucose meter (FreeStyle Lite Meter kit) As directed 1 ea 0RF E16.2 - Hypoglycemia, unspecified blood sugar diagnostic (FreeStyle Lite Strips) Use 1 test strip once a day 100 ea 1RF E16.2 - Hypoglycemia, unspecified lancets (FreeStyle Lancets) Use 1 lancet once a day 100 ea 2RF E16.2 - Hypoglycemia, unspecified Coding Level of Care Code TCM Mod MDM <= 14 Days Diagnoses Mild recurrent major depression F33.0 CELESTE (generalized anxiety disorder) F41.1 Hypoglycemia E16.2 Hospital discharge follow-up Z09 Additional Codes CELESTE-7 Assessment Billing - CELESTE-7 Assessment Tool: CELESTE-7 Assessment 58556 ([id number]) Time Spent (min) 23
== END 2023-09-07 12:47 | disposition home or self-care (01) ==
PROVIDERS: PCP Internal Medicine; Visit Provider Internal Medicine
DX: E16.2 Hypoglycemia, unspecified (principal); F33.0 Major depressive disorder, recurrent, mild; F41.1 Generalized anxiety disorder
CPT/HCPCS: 99214

== ENCOUNTER 2023-09-11 12:00 | Outpatient (REF) | payer OTHER, SELFPAY ==
[2023-09-11 13:48] LABS: Alanine Aminotransferase 19 U/L (0-40); Albumin Level 4.1 g/dL (3.5-5.0); Alkaline Phosphatase 77 U/L (39-117); Anion Gap 11 (12-20); Aspartate Amino Transferase 16 U/L (5-37); Bilirubin Total 0.4 mg/dL (0.0-1.0); Blood Urea Nitrogen 9 mg/dL (9-16); Calcium 8.9 mg/dL (8.4-10.2); Carbon Dioxide 28 mmol/L (22-29); Chloride 107 mmol/L (96-108); Estimated Glomerular Filt Rate > 60; Glucose Fasting 78 mg/dL (60-99); Insulin 2 uU/mL (2-29); Potassium 4.6 mmol/L (3.3-5.1); Sodium 141 mmol/L (135-145); Thyroid Stimulating Hormone 0.53 uIU/mL (0.32-4.0); Total Protein 7.1 g/dL (6.5-8.0)
[2023-09-12 08:18] LABS: C Peptide 0.49 ng/mL (0.80-3.85)
[2023-09-22 17:13] LABS: Insulin Growth Factor 2 482 ng/mL (267-616)
== END 2023-09-11 12:01 | disposition home or self-care (01) ==
LOC: HO.LAB 12:00
PROVIDERS: PCP Internal Medicine; Visit Provider Internal Medicine
DX: R63.4 Abnormal weight loss (principal); E16.2 Hypoglycemia, unspecified
CPT/HCPCS: 36415; 80053; 83525; 83789; 84439; 84443; 84681

== ENCOUNTER 2024-02-17 17:36 | Outpatient (AMB) | payer OTHER, SELFPAY ==
[2024-02-17 17:38] VITALS: BP 110/70; BMI 21.4
--- NOTE | 2024-02-17 17:38 | A.OFFPC_ITS ---
Vital Signs 02/17/24 17:38 Height 6 ft 2 in Weight 167 lb BMI 21.4 BP 110/70 Blood Pressure Location Lt brachial Position Sitting Intake Visit Reasons: Annual PE Intake Note: Patient here for a physical exam Lead Pressman Required: No Accompanied by: Self / Same As Patient Allergies hydrochlorothiazide Allergy (Unknown, Verified 02/17/24 17:44) chills ibuprofen Allergy (Unknown, Verified 02/17/24 17:44) stomach upset Medication List - Last Reconciled 02/17/24 by Katie Adan MD alprazolam 1/2 to 1 tablet PO daily PRN; blood sugar diagnostic (FreeStyle Lite Strips) Use 1 test strip once a day blood-glucose meter (FreeStyle Lite Meter kit) As directed escitalopram oxalate 10 mg PO DAILY lancets (FreeStyle Lancets) Use 1 lancet once a day Tobacco use date assessed: 09/07/23 Dental Screening Dental Screen Date: 02/17/24 Did you have a dental visit in the last 12 months?: No Did you have a dental problem in the last 6 months where you did not have access to dental care?: No Was dental information given to patient?: Patient has dentist HPI HPI Comments History of Present Illness Details This is a 48-year-old male with mild recurrent major depression that comes for his physical exam. Depression stable with medications and is follow by Psychiatry. He had a colonoscopy less than 10 years ago and was normal. Complains of blurry vision and would like a referral to Ophthalmology. Also complains of persistent headaches and has history of having nonspecified brain tumors in the brain. No neurological deficit. [facility] Medical History (Updated 02/17/24 @ 17:55 by Katie Adan MD) COVID-19 Insomnia CELESTE (generalized anxiety disorder) Mild recurrent major depression Deafness in left ear HTN (hypertension) Surgical History History of surgery of head Family History Father HTN (hypertension) Arthritis Mother HTN (hypertension) Diabetes mellitus Cancer Maternal Uncle Colon cancer Social History Housing: House Alcohol intake: current Alcohol intake frequency: holidays/special occasions only Alcohol type: beer Patient Tobacco Use Status: Current someday Tobacco user Tobacco use type: Cigarette Cigarettes Per Day: 2 e-Cigarette/Vaping Use: Never Used Second Hand Smoke Exposure: Yes service: No Current occupational status: disabled Cognitive needs: No Hearing needs: No Vision needs: No Questionnaire PHQ-9 Over the last 2 weeks, how often have you been bothered by any of the following problems? 1. Little interest or pleasure in doing things: not at all 2. Feeling down, depressed, or hopeless: not at all 3. Trouble falling or staying asleep, or sleeping too much: not at all 4. Feeling tired or having little energy: not at all 5. Poor appetite or overeating: not at all 6. Feeling bad about yourself - or that you are a failure or have let yourself or your family down: not at all 7. Trouble concentrating on things, such as reading the newspaper or watching television: not at all 8. Moving or speaking so slowly that other people could have noticed. Or the opposite - being so fidgety or restless that you have been moving around a lot more than usual: not at all 9. Thoughts that you would be better off or of hurting yourself in some way: not at all Total score: 0 Depression Screening Interpretation: Negative Depression Screening Done: Yes 90265 - PHQ-9 Billing: Yes Source: Developed by Drs. Joshua Lucas, Brisa Recio, Cesar Duran and colleagues, with an educational kristy from [employer]. Thrive Questionnaire Date Thrive assessed: 02/17/24 I am a: Patient What is your living situation today?: I have a steady place to live Within the past 12 months, did the food you bought not last and you didn't have the money to get more?: Never true Within the past 12 months, did you worry whether your food would run out before you got money to buy more?: Never true Do you have trouble paying for medicines?: No Do you have trouble getting transportation to medical appointments?: No Do you have trouble paying your heating and electricity bill?: No Do you have trouble taking care of your child, family member or friend?: No Do you have trouble with day-to-day activities such as bathing, preparing meals, shopping, managing finances, etc.?: No Are you currently unemployed and looking for a job?: No Are you interested in more education?: No Please select the resources that you would like help with: None Currently or been in a relationship where the following occur: I choose not to answer THRIVE Score: 0 AUDIT C Alcohol Use Questionnaire (AUDIT-C) 1. How often do you have a drink containing alcohol?: Monthly or less 2. How many drinks containing alcohol do you have on a typical day when you are drinking?: 1 or 2 3. How often do you have six or more drinks on one occasion?: Never Total Score: 1 Score Reviewed/Action Taken: No CELESTE-7 AMB Questionnaire CELESTE-7 Date CELESTE - 7 assessed: 02/17/24 Feeling nervous, anxious, or on edge: 1 = Several days Not being able to stop or control worryin = Not at all Worrying too much about different things: 1 = Several days Trouble relaxin = Several days Being so restless that it is hard to sit still: 1 = Several days Becoming easily annoyed or irritable: 2 = More than half the days Feeling afraid as if something awful might happen: 0 = Not at all Total CELESTE-7 score (0-4 normal; 5-9 mild; 10-14 moderate; 15-21 severe): 6 Source: Developed by Drs. Joshua Lucas, Brisa Recio, Cesar Duran and colleagues, with an educational kristy from [employer]. CELESTE-7 Assessment Billing CELESTE-7 Assessment Tool: CELESTE-7 Assessment 23381 Review of Systems Const All systems reviewed & are unremarkable except as noted in HPI and below Card Denies chest pain at rest, Denies chest pain with activity, Denies edema, Denies irregular heart rhythm, Denies claudication, Denies dyspnea, Denies dyspnea on exertion, Denies orthopnea, Denies paroxysmal nocturnal dyspnea and Denies slow heart rate Resp Denies cough, Denies dyspnea and Denies dyspnea on exertion GI Denies abdominal pain, Denies change in bowel habits, Denies excessive flatus, Denies nausea and Denies vomiting Denies urinary hesitancy, Denies urinary incontinence and Denies urinary urgency Musc Denies atrophy, Denies deformity and Denies limited range of motion Skin/Breast Denies bleeding lesions, Denies changing lesions and Denies rash Physical exam (Primary Care) Vital Signs: Last Vital Signs BP 110/70 02/17/24 17:38 BMI result Body Mass Index 21.4 Tobacco/Smoking Status: Tobacco use Status Tobacco use date assessed 09/07/23 02/17/24 17:46 Patient Tobacco Use Status Current someday Tobacco 02/17/24 17:46 Tobacco use type Cigarette 02/17/24 17:46 e-Cigarette/Vaping Use Never Used 02/17/24 17:46 PHQ-9: PHQ-9 Score PHQ-9: Total score 0 02/17/24 17:46 Depression Screening Interpretation: Negative Thrive Assessment: Date of Thrive Assessment Date Thrive assessed 02/17/24 02/17/24 17:46 Currently or been in a relationship where the following occur: I choose not to answer HENIL Head: Yes normal to inspection, Yes normocephalic and Yes atraumatic Ears: external ears normal Eyes General: appearance normal, both eyes and all related structures Eyelids: Yes eyelids normal Conjunctivae: conjunctivae normal Neck Neck: Yes normal visual inspection and Yes supple Resp Effort & Inspection: normal respiratory effort Auscultation: clear to auscultation bilaterally Cardio Jugular venous distension: no JVD Rate: regular rate Rhythm: regular rhythm Heart sounds: S1 normal heart sound present and S2 normal heart sound present GI Inspection: Yes normal to inspection Palpation (GI): Soft to palpation and nontender Auscultation: normal bowel sounds Skin General skin exam: no rashes or lesions noted Neuro General: no focal motor deficits Extrem General: Yes full ROM Psych Appearance: grossly normal Assessment and Plan Assessment & Plan (1) Physical exam: Code(s): Z00.00 - Encounter for general adult medical examination without abnormal findings Plan: Repeat in a year. (2) Persistent headaches: Code(s): R51.9 - Headache, unspecified Plan: MRI of the brain ordered. (3) Blurry vision: Code(s): H53.8 - Other visual disturbances Plan: Referred to Ophthalmology. (4) Mild recurrent major depression: Code(s): F33.0 - Major depressive disorder, recurrent, mild Plan: Continue escitalopram. Follow by Psychiatry. Orders: Orders MR head/brain wo con Today R51.9 - Headache, unspecified Comprehensive [place]. Panel Fast Today Z00.00 - Encounter for general adult medical examination without abnormal findings Lipid Panel Today Z00.00 - Encounter for general adult medical examination without abnormal findings Referrals Ophthalmology Referral H53.8 - Other visual disturbances Coding Level of Care Code Est Pt Level 3 (63219) Est Pt Prev Care 40-64y(71664) Diagnoses Physical exam Z00.00 Persistent headaches R51.9 Blurry vision H53.8 Mild recurrent major depression F33.0 Additional Codes CELESTE-7 Assessment Billing - CELSETE-7 Assessment Tool: CELESTE-7 Assessment 96766 ([id number]) Time Spent (min) 33
== END 2024-02-17 17:52 | disposition home or self-care (01) ==
PROVIDERS: PCP Internal Medicine; Visit Provider Internal Medicine
DX: Z00.00 Encounter for general adult medical examination without abnormal findings (principal); R51.9 Headache, unspecified; H53.8 Other visual disturbances; F33.0 Major depressive disorder, recurrent, mild

== ENCOUNTER → 2024-02-17 17:36 | Outpatient (BNVA) | payer OTHER, SELFPAY | PROVIDERS: PCP Internal Medicine; Visit Provider Internal Medicine | DX: Z00.01 Encounter for general adult medical examination with abnormal findings (principal); R51.9 Headache, unspecified; H53.8 Other visual disturbances; F33.0 Major depressive disorder, recurrent, mild | CPT/HCPCS: 96127; 99212 ==

== ENCOUNTER 2024-03-09 15:52 | Outpatient (REF) | payer OTHER, SELFPAY ==
--- NOTE | ~2024-03-09 | MR_ITS ---
EXAMINATION: MR BRAIN WITHOUT CONTRAST CLINICAL INFORMATION: Headache, unspecified. Patient states history of tumors and brain x3 . Loss of hearing left ear. COMPARISON: No direct comparison available. MRI of the petrous temporal bones 08/03/2013. CT head 01/20/2019. TECHNIQUE: MRI of the brain was obtained using routine sequences without contrast. Exam performed on a Siemens 1.5 Gail magnet. Exam submitted for review 05/10/2024 8:54 AM SENIOR QA ANALYST. FINDINGS: There is no diffusion restriction. There is no intracranial hemorrhage, acute infarction, mass effect, or edema. Ventricles, sulci, and cisterns are normal in size and configuration for patient age. No shift of midline. No abnormal hemosiderin deposition is identified. There is a DVA again demonstrated in the right precentral gyrus. There are a few air scattered punctate foci of white matter T2 hyperintensity in the periventricular, subcortical, and hemispheric deep white matter, nonspecific, but statistically most likely on the basis of small vessel ischemic changes. No morphology seen suggestive of demyelination. Midline structures appear normally formed. The pituitary gland appears normal. Posterior fossa structures appear normal. Cerebellar tonsils are appropriately located. Major flow voids are preserved within the skull base. The globes and orbital contents demonstrate no abnormalities. Mucous retention cysts in the inferior left maxillary antrum. Mild mucosal thickening right maxillary antrum. Scattered mucosal thickening, mild to moderate, ethmoid sinuses. Remainder of the paranasal sinuses, mastoids, and tympanic cavities are normally aerated. There is redemonstration of dysmorphic appearance of the left cochlea. Extracranial soft tissues demonstrate no abnormalities. No suspicious bone marrow changes are evident. Mild arthritis left TM joint. Atlantoaxial joint is intact and demonstrates mild arthritis. MR/MR head/brain wo con IMPRESSION: 1. No evidence of intracranial hemorrhage, acute infarction, mass effect, or edema. 2. A few scattered nonspecific T2 hyperintense white matter foci, statistically most likely on the basis of small vessel ischemic changes. No morphology suggestive of inflammatory demyelination. 3. Redemonstration of left cochlear dysmorphia. 4. 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 5. Mild to moderate maxillary and ethmoid paranasal sinus disease, most significant ethmoid sinuses. Electronically signed by: Willie Singh MD 05/10/2024 10:00 AM [facility]
== END 2024-03-09 15:53 | disposition home or self-care (01) ==
LOC: HO.MRI 15:52
PROVIDERS: PCP Internal Medicine; Visit Provider Internal Medicine
DX: R51.9 Headache, unspecified (principal)
CPT/HCPCS: 70551

== ENCOUNTER → 2024-03-09 15:56 | Outpatient (BNV) | payer OTHER, SELFPAY | PROVIDERS: PCP Internal Medicine; Visit Provider Radiology Diagnostic Radiology | DX: R51.9 Headache, unspecified (principal) | CPT/HCPCS: 70551 ==

== ENCOUNTER 2024-06-11 12:00 | Observation (INO) | payer OTHER, SELFPAY ==
--- NOTE | 2024-06-11 | ECG_ITS ---
Test Reason : SEIZURE Blood Pressure : */* mmHG Vent. Rate : 65 BPM Atrial Rate : 65 BPM P-R Int : 142 ms QRS Dur : 110 ms QT Int : 406 ms P-R-T Axes : 56 67 47 degrees QTcB Int : 422 ms Normal sinus rhythm Normal ECG When compared with ECG of 06-May-2018 13:11, No significant change was found Referred By: Joann Valladares Electronically Signed By: JED VALDEZ
--- NOTE | ~2024-06-11 | XR_ITS ---
CLINICAL HISTORY: syncope vs seizure 2 view chest x-ray Comparison: CR - CHEST 2 VIEWS - 05/06/18 14:28 EST Findings: No consolidation or effusion. Heart size is normal. No acute fracture. IMPRESSION: 1. No acute findings. This document has been electronically signed by: Yen Ac MD on 06/11/2024 14:06:32
--- NOTE | ~2024-06-11 | CT_ITS ---
CLINICAL HISTORY: ? seizure no history of same CT head without contrast Comparison: CT/HI/SR - BRAIN WO IV CONTRAST [id number] - 02/10/17 01:19 EDT Findings: No intra-axial mass, midline shift, hydrocephalus, or acute hemorrhage. No significant atrophy-like change or white matter disease. The visualized paranasal sinuses and mastoid air cells are normal. The orbits are within normal limits. No skull fracture. IMPRESSION: 1. No acute intracranial findings This document has been electronically signed by: Yen Ac MD on 06/11/2024 14:39:12
[2024-06-11 12:07] VITALS: BP 129/76; PULSE 67; RESP 18; TEMP 36.4; O2SAT 98; BMI 23.5
--- NOTE | 2024-06-11 12:08 | ED_ITS ---
HPI - General Adult General Chief complaint: Seizure Stated complaint: WIT SZ @ WORK,? POSTICTAL/NOT COOP OR COM PER EMS Time Seen by Provider: 06/11/24 12:08 Source: patient, EMS, RN notes reviewed, old records reviewed and section cutter Mode of arrival: EMS Limitations: language barrier History of Present Illness ED Provider: Jacquelyn HPI narrative: Patient is a 48-year-old male with history of HTN, depression, deafness in left ear, unspecified brain tumors presenting to the ED with reported seizure like activity per co-workers. Patient states the last thing he remembers is cleaning snow off his car, feeling dizzy. He denies chest pain or shortness of breath. States that he was otherwise feeling normal this morning. Denies history of seizures. States he had one brain tumor removed as a child, is not followed by a neurologist at this time. complaint: seizure Onset (ago): minute(s) Treatments prior to arrival: none Related Data Home Medications ?Medication ?Instructions ?Recorded ?Confirmed alprazolam 1 mg tablet See Rx Instructions PO DAILY PRN 03/04/21 02/17/24 anxiety escitalopram oxalate 10 mg tablet 10 mg PO DAILY 03/04/21 02/17/24 Previous Rx's ?Medication ?Instructions ?Recorded blood sugar diagnostic (FreeStyle #100 ea 09/07/23 Lite Strips) blood-glucose meter (FreeStyle #1 ea 09/07/23 Lite Meter kit) lancets 28 gauge (FreeStyle #100 ea 09/07/23 Lancets) Allergies Allergy/AdvReac Type Severity Reaction Status Date / Time hydrochlorothiazide Allergy Unknown chills Verified 06/11/24 12:09 ibuprofen Allergy Unknown stomach Verified 06/11/24 12:09 upset Review of Systems 2 Review of Systems: As per HPI Yes all other systems are reviewed and are negative Constitutional: Constitutional: Reports as per HPI PMFSH Past Medical History Medical History COVID-19 Insomnia CELESTE (generalized anxiety disorder) Mild recurrent major depression Deafness in left ear HTN (hypertension) Surgical History History of surgery of head Family History Family History Father HTN (hypertension) Arthritis Mother HTN (hypertension) Diabetes mellitus Cancer Maternal Uncle Colon cancer Social History Social History Housing: House Alcohol intake: current Alcohol intake frequency: holidays/special occasions only Alcohol type: beer Patient Tobacco Use Status: Current someday Tobacco user Tobacco use type: Cigarette Cigarettes Per Day: 2 e-Cigarette/Vaping Use: Never Used Second Hand Smoke Exposure: Yes Advance Directives: No Advance Directives Information Provided: Yes Do you have a plan to hurt others: No Plan service: No Current occupational status: disabled Cognitive needs: No Hearing needs: No Vision needs: No Physical Exam ED Vital Signs: Vital Signs - 24 hr 06/11/24 12:07 Temperature 97.6 F Pulse Rate 67 Respiratory Rate 18 Blood Pressure 129/76 Pulse Oximetry 98 Oxygen Delivery Method Room Air BMI result Body Mass Index 23.5 Vital signs have been reviewed and appear to be correct. Blood pressure normal. Heart rate normal. Respiratory rate normal. Temperature normal. Oxygen saturation normal. Const General: cooperative, healthy appearing and no acute distress Orientation/consciousness: oriented to person, oriented to place, oriented to time and patient oriented x3 Limitations: no limitations HENLA Head: Yes normocephalic and Yes atraumatic Ears: external ears normal General nose exam: Normal external nose present Face and sinus: Yes face symmetric Mouth: oropharynx normal and moist mucous membranes Throat: Yes uvula midline Eyes Pupils: Equal, round and reactive pupils present Neck Neck: Yes normal visual inspection and Yes supple Resp Effort & Inspection: normal respiratory effort and able to speak in complete sentences Auscultation: clear to auscultation bilaterally Cardio Rate: regular rate Rhythm: regular rhythm Heart sounds: S1 normal heart sound present and S2 normal heart sound present GI Palpation (GI): Soft to palpation and nontender Auscultation: normoactive bowel sounds General: Yes no CVA tenderness Back/Spine/Pelvis Back: no CVA tenderness Skin General skin exam: elasticity normal and turgor normal Neuro General: oriented to person, oriented to place, oriented to time, patient oriented x3, moves all extremities, no focal motor deficits and CN's II-XI intact bilaterally Cranial nerves: Yes Equal, round and reactive pupils present Cognition (Neuro): normal cognition Extrem General: Yes full ROM, Yes no pedal edema and Yes no calf tenderness Psych Mental Status: mental status grossly normal Affect: normal affect Thought process: Normal thought process present Medications Administered Discontinued Medications Generic Name Dose Route Start Last Admin Trade Name Bryanna PRN Reason Stop Dose Admin Acetaminophen 975 mg 06/11/24 12:44 06/11/24 13:02 Acetaminophen 325 Mg Tablet PO 06/11/24 12:45 975 mg ONCE ONE Administration Sodium Chloride 1,000 mls @ 999 mls/hr 06/11/24 13:15 06/11/24 13:14 Ns IV 06/11/24 14:15 999 mls/hr .Q1H1M ALICE Administration Medical Decision Making Medical Decision Making [facility] Narrative: Patient is a 48-year-old male with history of HTN, depression, deafness in left ear, unspecified brain tumors presenting to the ED with reported seizure like activity per co-workers. On exam patient is awake, A+Ox3, VS WNL, afebrile, normal neurological exam without focal deficits, physical exam findings as above. Given reported symptoms and physical exam findings, initial differential includes but is not limited to seizure, syncope, electrolyte abnormality, drug or alcohol intoxication, malignancy/mass. Labs notable for leukocytosis, elevated lactic likely due to seizure. Do not suspect sepsis. Viral serology negative. X-ray chest notable for no evidence of pneumonia. CT head is without evidence of ICH, mass, hydrocephalus or other acute abnormality. My interpretation is in agreement with the radiologist's interpretation. Given that this is new onset of seizure, will admit, admission accepted by Dr. Mejias. Differential Diagnosis Differential Diagnoses: The differential diagnosis associated with the presentation includes as per [facility] Admission/Observation Consideration of admission/observation: Escalation of care including admission/observation considered Consult Healthcare Provider Management of the patient was discussed with: Hospitalist Lab Data [facility] Lab Attestation statement: I reviewed the patient's lab results. as per [facility] 06/11/24 12:40 06/11/24 12:54 Labs: Lab Results 06/11/24 06/11/24 06/11/24 Range/Units 12:07 12:18 12:19 WBC (4.8-10.8) X10*3/uL RBC (4.60-5.80) X10*6/uL Hgb (14.0-18.0) g/dl Hct (42.0-52.0) % MCV (80.0-98.0) fL MCH (27.0-33.0) pg MCHC (31.0-36.0) g/dl RDW (11.0-16.0) % Plt Count (160-400) X10*3/uL MPV (9.4-12.4) fL Immature Gran % (Auto) (0.0-0.4) % Neut % (Auto) (45-73) % Lymph % (Auto) (20-40) % [place] % (Auto) (2-11) % Eos % (Auto) (0-4) % Baso % (Auto) (0-2) % Lymph # (Auto) (1.2-4.9) X10*3/uL [place] # (Auto) (0.1-1.2) X10*3/uL Eos # (Auto) (0.0-0.4) X10*3/uL Baso # (Auto) (0.0-0.2) X10*3/uL Abs Immat Gran (auto) (0.00-0.03) X10*3/uL Absolute Neuts (auto) (2.0-8.3) x10*3/uL Absolute Nucleated RBC (0.0-0.012) X10*3/uL Nucleated RBC % (auto) (0.0-0.2) /100WBC PT 10.9 (10.9-12.4) SEC INR 0.9 (0.9-1.1) Sodium (135-145) mmol/L Potassium (3.3-5.1) mmol/L Chloride (96-108) mmol/L Carbon Dioxide (22-29) mmol/L Anion Gap (12-20) BUN (9-16) mg/dL Creatinine (0.5-1.4) mg/dL Estim Creat Clear Calc Estimated GFR POC Glucose 144 H (60-115) mg/dL Random Glucose (60-115) mg/dL Lactic Acid 6.7 H* (0.5-2.0) mmol/L Calcium (8.4-10.2) mg/dL Magnesium (1.6-2.6) mg/dL Total Bilirubin (0.0-1.0) mg/dL AST (5-37) U/L ALT (0-40) U/L Alkaline Phosphatase (39-117) U/L Troponin I High Sens < 2.7 (<3.5-35.0) ng/L Total Protein (6.5-8.0) g/dL Albumin (3.5-5.0) g/dL Ethyl Alcohol < 10 mg/dL Influenza Type A (PCR) NEGATIVE (Negative) Influenza Type B (PCR) NEGATIVE (Negative) RSV RNA Qual (PCR) NEGATIVE (Negative) SARS-CoV-2 RNA (RT-PCR) NEGATIVE (Negative) 06/11/24 06/11/24 Range/Units 12:40 12:54 WBC 15.2 H (4.8-10.8) X10*3/uL RBC 5.92 H (4.60-5.80) X10*6/uL Hgb 14.3 (14.0-18.0) g/dl Hct 44.4 (42.0-52.0) % MCV 75.0 L (80.0-98.0) fL MCH 24.2 L (27.0-33.0) pg MCHC 32.2 (31.0-36.0) g/dl RDW 15.9 (11.0-16.0) % Plt Count 288 (160-400) X10*3/uL MPV 8.6 L (9.4-12.4) fL Immature Gran % (Auto) 0.8 H (0.0-0.4) % Neut % (Auto) 81.5 H (45-73) % Lymph % (Auto) 10.6 L (20-40) % [place] % (Auto) 6.1 (2-11) % Eos % (Auto) 0.5 (0-4) % Baso % (Auto) 0.5 (0-2) % Lymph # (Auto) 1.6 (1.2-4.9) X10*3/uL [place] # (Auto) 0.9 (0.1-1.2) X10*3/uL Eos # (Auto) 0.1 (0.0-0.4) X10*3/uL Baso # (Auto) 0.1 (0.0-0.2) X10*3/uL Abs Immat Gran (auto) 0.12 H (0.00-0.03) X10*3/uL Absolute Neuts (auto) 12.4 H (2.0-8.3) x10*3/uL Absolute Nucleated RBC 0.000 (0.0-0.012) X10*3/uL Nucleated RBC % (auto) 0.0 (0.0-0.2) /100WBC PT (10.9-12.4) SEC INR (0.9-1.1) Sodium 138 (135-145) mmol/L Potassium 4.0 (3.3-5.1) mmol/L Chloride 110 H (96-108) mmol/L Carbon Dioxide 24 (22-29) mmol/L Anion Gap 8 L (12-20) BUN 8 L (9-16) mg/dL Creatinine 0.87 (0.5-1.4) mg/dL Estim Creat Clear Calc 122.0 Estimated GFR > 60 POC Glucose (60-115) mg/dL Random Glucose 78 (60-115) mg/dL Lactic Acid (0.5-2.0) mmol/L Calcium 8.8 (8.4-10.2) mg/dL Magnesium 2.2 (1.6-2.6) mg/dL Total Bilirubin 0.2 (0.0-1.0) mg/dL AST 24 (5-37) U/L ALT 19 (0-40) U/L Alkaline Phosphatase 62 (39-117) U/L Troponin I High Sens (<3.5-35.0) ng/L Total Protein 6.9 (6.5-8.0) g/dL Albumin 3.9 (3.5-5.0) g/dL Ethyl Alcohol mg/dL Influenza Type A (PCR) (Negative) Influenza Type B (PCR) (Negative) RSV RNA Qual (PCR) (Negative) SARS-CoV-2 RNA (RT-PCR) (Negative) Independent Interpretation I performed an independent interpretation of an: Plain X-Ray Interpretation: No pneumonia on chest xray Radiology Impression Discussion of test interpretation with radiology: I have reviewed the radiologist's reading. Radiologist Impression: Findings: No intra-axial mass, midline shift, hydrocephalus, or acute hemorrhage. No significant atrophy-like change or white matter disease. The visualized paranasal sinuses and mastoid air cells are normal. The orbits are within normal limits. No skull fracture. IMPRESSION: 1. No acute intracranial findings Findings: No consolidation or effusion. Heart size is normal. No acute fracture. IMPRESSION: 1. No acute findings. External Record Review External record reviewed: Inpatient record, Office record and Outpatient record Discharge Plan Discharge Patient Disposition: Admitted As Inpatient Prescriptions: No Action escitalopram oxalate 10 mg tablet 10 mg PO DAILY alprazolam 1 mg tablet See Rx Instructions PO DAILY PRN (Reason: anxiety) Rx Instructions: 1/2 to 1 tablet PO daily PRN; (DME) blood-glucose meter [FreeStyle Lite Meter] Kit See Rx Instructions .Route Qty: 1 0RF Rx Instructions: As directed (DME) FreeStyle Lite Strips Strip See Rx Instructions .Route Qty: 100 1RF Rx Instructions: Use 1 test strip once a day (DME) lancets [FreeStyle Lancets] 28 gauge misc See Rx Instructions .Route Qty: 100 2RF Rx Instructions: Use 1 lancet once a day Print Language: Polish
[2024-06-11 12:19] LABS: Glucose, Whole Blood 144 mg/dL (60-115)
[2024-06-11 12:41] LABS: INTERNATIONAL NORM RATIO 0.9 (0.9-1.1); Prothrombin Time 10.9 SEC (10.9-12.4)
[2024-06-11 12:45] LABS: MANUAL DIFF FLAG NO
[2024-06-11 12:50] LABS: Basophils Absolute Auto 0.1 X10*3/uL (0.0-0.2); Basophils Percent Auto 0.5 % (0-2); Eosinophils Absolute Auto 0.1 X10*3/uL (0.0-0.4); Eosinophils Percent Auto 0.5 % (0-4); Hematocrit 44.4 % (42.0-52.0); Hemoglobin 14.3 g/dl (14.0-18.0); Imm Gran Abs Auto 0.12 X10*3/uL (0.00-0.03); Imm Gran Pct Auto 0.8 % (0.0-0.4); Lymphocytes Absolute Auto 1.6 X10*3/uL (1.2-4.9); Lymphocytes Percent Auto 10.6 % (20-40); Mean Corpuscular HGB Conc 32.2 g/dl (31.0-36.0); Mean Corpuscular Hemoglobin 24.2 pg (27.0-33.0); Mean Platelet Volume 8.6 fL (9.4-12.4); Monocytes Absolute Auto 0.9 X10*3/uL (0.1-1.2); Monocytes Percent Auto 6.1 % (2-11); Neutrophils Absolute Auto 12.4 x10*3/uL (2.0-8.3); Neutrophils Percent Auto 81.5 % (45-73); Platelet Count 288 X10*3/uL (160-400); Red Blood Count 5.92 X10*6/uL (4.60-5.80); Red Cell Distribution Width 15.9 % (11.0-16.0); White Blood Count 15.2 X10*3/uL (4.8-10.8)
[2024-06-11 12:59] LABS: Troponin-I High Sensitivity < 2.7 ng/L (<3.5-35.0)
[2024-06-11 13:00] LABS: Ethanol < 10 mg/dL
[2024-06-11] MEDS: Acetaminophen 325 MG TABLET 975 MG PO (13:02)
[2024-06-11 13:05] LABS: Lactic Acid 6.7 mmol/L (0.5-2.0)
[2024-06-11] MEDS: 0.9 % Sodium Chloride 1,000 ML 999 ML IV (13:14)
[2024-06-11 13:22] LABS: Alanine Aminotransferase 19 U/L (0-40); Albumin Level 3.9 g/dL (3.5-5.0); Alkaline Phosphatase 62 U/L (39-117); Anion Gap 8 (12-20); Aspartate Amino Transferase 24 U/L (5-37); Bilirubin Total 0.2 mg/dL (0.0-1.0); Blood Urea Nitrogen 8 mg/dL (9-16); Calcium 8.8 mg/dL (8.4-10.2); Carbon Dioxide 24 mmol/L (22-29); Chloride 110 mmol/L (96-108); Estimated Glomerular Filt Rate > 60; Glucose Random 78 mg/dL (60-115); Magnesium 2.2 mg/dL (1.6-2.6); Sodium 138 mmol/L (135-145); Total Protein 6.9 g/dL (6.5-8.0)
[2024-06-11 13:30] LABS: Influenza A PCR NEGATIVE (Negative); Influenza B PCR NEGATIVE (Negative); Resp Syncy Virus RNA Qual PCR NEGATIVE (Negative); SARS COV2 PCR INHOUSE NEGATIVE (Negative)
[2024-06-11 14:25] LABS: Reflex Lactate? Lactic Acid Added
--- NOTE | 2024-06-11 15:00 | PM.IMHP ---
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 Pt was apparently at work when he was seen by coworkers to have tonic-clonic type movements with foaming from the that lasted 20-30 seconds. Was subsequently postictal for EMS, though improving some by the time he was seen and evaluated in the ED. pt with no known previous seizure disorder. is at bedside who helps supplement HPI. She states pt currently only takes psychiatric medications though he has not been taking these for 4 days. The past couple of days he has had nausea and increased fatigue and anxiety. also notes that pt has mood has changed quite a bit in the past 2 years. Pt apparently will get angry, irritable quickly and without cause. Pt himself reports headache and some nausea, but otherwise has no acute medical complaints. No fever, chills, abdominal pain. No chest pain/pressure, palpitations. Denies shortness or breath or difficulty breathing. No recent illnesses. Denies any new medications. No alcohol illicit substance use, but occasionally smokes marijuana. Of note, there has been some confusion in the medical record as to whether pt has a PMH of unspecified brain tumors. Pt initially thought that his mother had told him he had 3 brain tumors when he was young, with 1 being removed as a child. However, CT today negative for intracranial masses, lesions, or evidence of intracranial surgical changes. It appears patient's cephalic lesions could have been referring to bony malformations rather than intracranial masses/lesions. In the ED pt's vitals were stable and WNL. Labs were significant for leukocytosis of 15.2 and lactic acid 6.7. Stable H&H. No significant electrolyte abnormalities. Renal and hepatic function WNL. Ethyl alcohol levels undetectable. Tested negative for flu, RSV, COVID. CXR showed no acute findings. CT?of head negative for acute intracranial findings including intra-axial masses. Pt was treated in the ID with IVF, acetaminophen, and lorazepam 1 mg IV. Pt will be admitted to the hospital under observation for treatment and further evaluation of tonic-clonic like movements concerning for new onset seizure. Review of Systems Review of Systems: Negative except for that which is stated in the HPI [facility] Medical History COVID-19 Insomnia CELESTE (generalized anxiety disorder) Mild recurrent major depression Deafness in left ear HTN (hypertension) Family History Father HTN (hypertension) Arthritis Mother HTN (hypertension) Diabetes mellitus Cancer Maternal Uncle Colon cancer Surgical History History of surgery of head Social History Housing: House Alcohol intake: current Alcohol intake frequency: holidays/special occasions only Alcohol type: beer Patient Tobacco Use Status: Never used Tobacco Tobacco use type: Cigarette Cigarettes Per Day: 2 Smoked in Last 30 Days: No e-Cigarette/Vaping Use: Never Used Second Hand Smoke Exposure: Yes Use of substances other than those prescribed or required for medical reasons: No Advance Directives: No Advance Directives Information Provided: Yes Do you have a plan to hurt others: No Plan Nutrition Risks: No Nutritional Risk service: No Current occupational status: disabled Cognitive needs: No Hearing needs: No Vision needs: No Meds Allergies Allergy/AdvReac Type Severity Reaction Status Date / Time hydrochlorothiazide Allergy Unknown chills Verified 06/11/24 12:09 ibuprofen Allergy Unknown stomach Verified 06/11/24 12:09 upset Home Medications ?Medication ?Instructions ?Recorded ?Confirmed ?Last Taken ?Type alprazolam 1 mg tablet 2 mg PO BEDTIME anxiety 03/04/21 06/11/24 06/07/24 History escitalopram oxalate 10 mg tablet 10 mg PO DAILY 03/04/21 06/11/24 06/07/24 History alprazolam 1 mg tablet 1 mg PO DAILY 06/11/24 06/11/24 06/07/24 History Physical Exam Vital Signs and Narrative: Vital Signs: Last Vital Signs Temp 97.6 F 06/11/24 12:07 Pulse 67 06/11/24 12:07 Resp 18 06/11/24 12:07 BP 129/76 06/11/24 12:07 Pulse Ox 98 06/11/24 12:07 O2 Del Method Room Air 06/11/24 12:07 BMI result Body Mass Index 23.5 General: AOx3, no acute distress Resp: CTA bilaterally CVS: S1, S2, RRR GI: +BS, NT, no distention Skin: Warm, dry Neuro: Cranial nerves II-XII grossly intact bilaterally. Motor grossly intact bilaterally. No focal deficits noted. Preserved strength of upper and lower extremities bilaterally. Extremities: No edema Psych: Appropriate affect Results Labs 06/11/24 12:40 06/11/24 12:54 Labs: Laboratory Results - last 24 hr 06/11/24 06/11/24 06/11/24 12:07 12:18 12:19 MCV MCH MCHC RDW Plt Count MPV Immature Gran % (Auto) Neut % (Auto) Lymph % (Auto) [place] % (Auto) Eos % (Auto) Baso % (Auto) Lymph # (Auto) [place] # (Auto) Eos # (Auto) Baso # (Auto) Abs Immat Gran (auto) Absolute Neuts (auto) Absolute Nucleated RBC Nucleated RBC % (auto) PT 10.9 INR 0.9 Anion Gap Estim Creat Clear Calc Estimated GFR POC Glucose 144 H Random Glucose Lactic Acid 6.7 H* Calcium Magnesium Total Bilirubin AST ALT Alkaline Phosphatase Troponin I High Sens < 2.7 Total Protein Albumin Ethyl Alcohol < 10 Influenza Type A (PCR) NEGATIVE Influenza Type B (PCR) NEGATIVE RSV RNA Qual (PCR) NEGATIVE SARS-CoV-2 RNA (RT-PCR) NEGATIVE 06/11/24 06/11/24 12:40 12:54 MCV 75.0 L MCH 24.2 L MCHC 32.2 RDW 15.9 Plt Count 288 MPV 8.6 L Immature Gran % (Auto) 0.8 H Neut % (Auto) 81.5 H Lymph % (Auto) 10.6 L [place] % (Auto) 6.1 Eos % (Auto) 0.5 Baso % (Auto) 0.5 Lymph # (Auto) 1.6 [place] # (Auto) 0.9 Eos # (Auto) 0.1 Baso # (Auto) 0.1 Abs Immat Gran (auto) 0.12 H Absolute Neuts (auto) 12.4 H Absolute Nucleated RBC 0.000 Nucleated RBC % (auto) 0.0 PT INR Anion Gap 8 L Estim Creat Clear Calc 122.0 Estimated GFR > 60 POC Glucose Random Glucose 78 Lactic Acid Calcium 8.8 Magnesium 2.2 Total Bilirubin 0.2 AST 24 ALT 19 Alkaline Phosphatase 62 Troponin I High Sens Total Protein 6.9 Albumin 3.9 Ethyl Alcohol Influenza Type A (PCR) Influenza Type B (PCR) RSV RNA Qual (PCR) SARS-CoV-2 RNA (RT-PCR) Assessment and Plan (1) Observed seizure-like activity: Status: Acute Plan Pt is a 48-year-old Kitt[place]-speaking male with a PMH significant for?HTN, 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 Pt will be admitted to the hospital for treatment and further evaluation of tonic-clonic like movements concerning for new onset seizure. Question of new onset seizure Pt with witnessed 20-30 second episode of tonic-clonic movements with the apparent postictal state Etiology unclear: No significant electrolyte abnormalities, POC 144, CT of head negative for acute intracranial abnormality Pt without previous seizure history, no new medications, denies illicit substance use Pt given Ativan 1 mg IV in the ED Will treat with Keppra IV, and 500 mg p.o. b.i.d. EEG Neurology consult Seizure precautions Monitor on telemetry Anxiety Continue alprazolam, escitalopram Full Code Attending:?Dr. Mejias DVT Prophylaxis: Lovenox Pt will be admitted to the hospital under observation for treatment and further evaluation of tonic-clonic like movements concern for new onset seizure. Pt will require hospital level care for close monitoring of cardiac function as well as further examination with EEG and neurology consultation. Quality Stroke Does the patient have a stroke diagnosis?: No VTE Prior VTE?: No VTE Risk Level:: Medical - moderate - high VTE Device Contraindication: Treatment Not Indicated VTE Drug Contraindication: N/A - Med Ordered
[2024-06-11] MEDS: LORazepam 2 MG/ML VIAL 1 MG IVPUSH (15:10)
[2024-06-11 15:22] LABS: ~Lactic Acid-LAB USE ONLY 1.1 mmol/L (0.5-2.0)
[2024-06-11 16:13] VITALS: BP 116/63; PULSE 77; RESP 14; TEMP 37; O2SAT 98
[2024-06-11] MEDS: levETIRAcetam in NaCl (iso-os) 500 MG/100 ML PIGGYBACK 400 MG IV (16:37)
[2024-06-11] MEDS: Enoxaparin Sodium 40 MG/0.4 ML SYRINGE SUBCUT (16:38)
[2024-06-11] MEDS: 0.9 % Sodium Chloride Flush 3 ML SYRINGE IVFLUSH ×2 (16:39→23:32)
[2024-06-11 17:25] LABS: Estimated Average Glucose 108 mg/dL; Hemoglobin A1C 131.6486 umol/L; Hemoglobin A1c % 5.4 % (<6.0)
[2024-06-11 17:41] LABS: Appearance Urine Clear; Color Urine Yellow; Glucose Urine UA Negative (Negative); Leukocyte Esterase Urine Negative (Negative); Nitrite Urine Negative (Negative); PH 5.5 (5.0-9.0); Specific Gravity - Urine 1.015 (1.005-1.025); Urine Blood Negative (Negative); Urine Ketones 15 mg/dL (Negative); Urine Protein Negative (Neg-Trace)
[2024-06-11 17:53] LABS: Amphetamine Screen Urine Not Detected (Not Detect); Barbiturates, Urine Not Detected (Not Detect); Benzodiazepines Screen Urine Not Detected (Not Detect); Buprenorphine Scr Not Detected (Not Detect); Cannabinoid Screen Urine POSITIVE (Not Detect); Cocaine Screen Urine Not Detected (Not Detect); Fentanyl, urine Not Detected (Not Detect); Methadone Screen, Urine Not Detected (Not Detect); Opiate Screen Urine Not Detected (Not Detect); Oxycodone Screen Urine Not Detected (Not Detect); Phencyclidine Screen Urine Not Detected (Not Detect)
--- NOTE | 2024-06-11 17:54 | PHA.MEDREC ---
Addendum entered by Alison Smith RPh 06/11/24 18:16: [facility] REVIEWED Original Note: Pharmacy Consult ? Medication Reconciliation Pharmacy has completed the medication reconciliation. Spoke to pt to confirm meds. Pt states they take alprazolam 1 mg in the AM and 2 mg in the PM.
[2024-06-11 18:05] VITALS: BP 115/60; PULSE 70; RESP 13; TEMP 37.1; O2SAT 98
[2024-06-11 19:56] VITALS: BP 108/64; PULSE 68; RESP 16; TEMP 36.9; O2SAT 99
[2024-06-11] MEDS: levETIRAcetam 500 MG TABLET PO (21:40)
[2024-06-11] MEDS: ALPRAZolam 0.5 MG TABLET 2 MG PO (21:40)
[2024-06-11] MEDS: Acetaminophen 325 MG TABLET 650 MG PO (21:44)
[2024-06-11 23:24] VITALS: BMI 23.4
[2024-06-11 23:37] VITALS: BP 105/58; PULSE 55; RESP 18; TEMP 36.4; O2SAT 98
[2024-06-12 04:00] VITALS: BP 109/69; PULSE 69; RESP 16; TEMP 36.2; O2SAT 98
[2024-06-12 07:11] LABS: Hematocrit 43.7 % (42.0-52.0); Hemoglobin 14.3 g/dl (14.0-18.0); Mean Corpuscular HGB Conc 32.7 g/dl (31.0-36.0); Mean Corpuscular Hemoglobin 24.4 pg (27.0-33.0); Mean Corpuscular Volume 74.6 fL (80.0-98.0); Mean Platelet Volume 8.8 fL (9.4-12.4); Platelet Count 260 X10*3/uL (160-400); Red Blood Count 5.86 X10*6/uL (4.60-5.80); Red Cell Distribution Width 16.3 % (11.0-16.0); White Blood Count 10.5 X10*3/uL (4.8-10.8)
[2024-06-12 07:28] LABS: Anion Gap 10 (12-20); Blood Urea Nitrogen 7 mg/dL (9-16); Calcium 8.5 mg/dL (8.4-10.2); Carbon Dioxide 24 mmol/L (22-29); Chloride 109 mmol/L (96-108); Creatinine Clr Calc Pharmacy 132.7; Estimated Glomerular Filt Rate > 60; Glucose Random 84 mg/dL (60-115); Potassium 3.7 mmol/L (3.3-5.1); Sodium 139 mmol/L (135-145)
[2024-06-12 08:00] VITALS: BP 101/68; PULSE 62; RESP 19; TEMP 36.2; O2SAT 98
[2024-06-12] MEDS: ALPRAZolam 0.5 MG TABLET 1 MG PO (08:00)
[2024-06-12] MEDS: Escitalopram Oxalate 10 MG TABLET PO (08:00)
[2024-06-12] MEDS: levETIRAcetam 500 MG TABLET PO (08:00)
[2024-06-12] MEDS: 0.9 % Sodium Chloride Flush 3 ML SYRINGE IVFLUSH (08:01)
[2024-06-12 11:50] VITALS: BP 122/63; PULSE 70; RESP 19; TEMP 36.4; O2SAT 99
--- NOTE | 2024-06-12 13:08 | P.DS_ITS ---
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 Pt was apparently at work when he was seen by coworkers to have tonic-clonic type movements with foaming from the that lasted 20-30 seconds. Was subsequently postictal for EMS, though improving some by the time he was seen and evaluated in the ED. pt with no known previous seizure disorder. is at bedside who helps supplement HPI. She states pt currently only takes psychiatric medications though he has not been taking these for 4 days. The past couple of days he has had nausea and increased fatigue and anxiety. also notes that pt has mood has changed quite a bit in the past 2 years. Pt apparently will get angry, irritable quickly and without cause. Pt himself reports headache and some nausea, but otherwise has no acute medical complaints. No fever, chills, abdominal pain. No chest pain/pressure, palpitations. Denies shortness or breath or difficulty breathing. No recent illnesses. Denies any new medications. No alcohol illicit substance use, but occasionally smokes marijuana. Of note, there has been some confusion in the medical record as to whether pt has a PMH of unspecified brain tumors. Pt initially thought that his mother had told him he had 3 brain tumors when he was young, with 1 being removed as a child. However, CT today negative for intracranial masses, lesi ons, or evidence of intracranial surgical changes. It appears patient's cephalic lesions could have been referring to bony malformations rather than intracranial masses/lesions. In the ED pt's vitals were stable and WNL. Labs were significant for leukocytosis of 15.2 and lactic acid 6.7. Stable H&H. No significant electrolyte abnormalities. Renal and hepatic function WNL. Ethyl alcohol lev els undetectable. Tested negative for flu, RSV, COVID. CXR showed no acute findings. CT?of head negative for acute intracranial findings including intra- axial masses. Pt was treated in the ID with IVF, acetaminophen, and lorazepam 1 mg IV. Pt will be admitted to the hospital under observation for treatment and further evaluation of tonic-clonic like movements concerning for new onset seizure. Hospital course The patient has evidence of new onset seizure given history. CT of head negative for acute intracranial abnormality. No evidence of hypoglycemic events (and these seems to be wrongly diagnosed with no hx of diabetes medications or actualy hypoglycemic readings). MRI done in 03/[address] Mccrary who noticed cerebellar atrophy suggetive of alcohol related complications. Patient loaded with Keppra and will be discharged on Keppra 750 mg bid with a plan to follow with dr Mccrary as outpatient for further evaluation. Discharge plan Start Keppra 750 mg two times a day for Seizure disorder Avoid Alcohol Follow up with Dr Mccrary office for further work up Time Attestation Discharge Coordination Time (in mins): 26 Quality: Safe Use of Opioids Does Pt have an Active Cancer Diagnosis on the Problem List?: No Quality: Stroke Does the patient have a stroke diagnosis?: No Physical Exam Vital Signs: Vital Signs: Last Vital Signs Temp 97.5 F 06/12/24 11:50 Pulse 70 06/12/24 11:50 Resp 19 06/12/24 11:50 BP 122/63 06/12/24 11:50 Pulse Ox 99 06/12/24 11:50 O2 Del Method Room Air 06/12/24 11:50 BMI result Body Mass Index 23.4 Const: Other: Constitutional : Awake, interactive, not in distress Neck : Normal inspection, Supple Cardiovascular : RRR, no JVP, no lower extremity edema Respiratory : good bilateral air entry, no crackles, wheezes or rhonchi Gastrointestinal: soft, lax, Normal bowel sounds, Non tender Skin : Warm, Dry Neurological : Alert & oriented x3, No focal deficit , CN 2-12 within normal DS: Data Data Completed and Pending Labs on day of discharge: Laboratory Results - last 24 hr 06/11/24 06/11/24 06/11/24 12:18 12:40 12:54 WBC RBC Hgb Hct MCV MCH MCHC RDW Plt Count MPV Absolute Nucleated RBC Nucleated RBC % (auto) Sodium 138 Potassium 4.0 Chloride 110 H Carbon Dioxide 24 Anion Gap 8 L BUN 8 L Creatinine 0.87 Estim Creat Clear Calc 122.0 Estimated GFR > 60 Random Glucose 78 Estimat Average Glucose 108 Hemoglobin A1c % 5.4 Lactic Acid F/U @ 2Hr Calcium 8.8 Magnesium 2.2 Total Bilirubin 0.2 AST 24 ALT 19 Alkaline Phosphatase 62 Total Creatine Kinase 424 H Total Protein 6.9 Albumin 3.9 Urine Color Urine Appearance Urine pH Ur Specific [place] Urine Protein Urine Glucose (UA) Urine Ketones Urine Blood Urine Nitrite Ur Leukocyte Esterase Urine Opiates Screen Ur Buprenorphine Scrn Ur Oxycodone Screen Urine Methadone Screen Urine Fentanyl Screen Ur Barbiturates Screen Ur Phencyclidine Scrn Ur Amphetamines Screen U Benzodiazepines Scrn Urine Cocaine Screen U Marijuana (THC) Screen Influenza Type A (PCR) NEGATIVE Influenza Type B (PCR) NEGATIVE RSV RNA Qual (PCR) NEGATIVE SARS-CoV-2 RNA (RT-PCR) NEGATIVE 06/11/24 06/11/24 06/12/24 14:57 17:32 06:46 WBC 10.5 RBC 5.86 H Hgb 14.3 Hct 43.7 MCV 74.6 L MCH 24.4 L MCHC 32.7 RDW 16.3 H Plt Count 260 MPV 8.8 L Absolute Nucleated RBC 0.000 Nucleated RBC % (auto) 0.0 Sodium 139 Potassium 3.7 Chloride 109 H Carbon Dioxide 24 Anion Gap 10 L BUN 7 L Creatinine 0.80 Estim Creat Clear Calc 132.7 Estimated GFR > 60 Random Glucose 84 Estimat Average Glucose Hemoglobin A1c % Lactic Acid F/U @ 2Hr 1.1 Calcium 8.5 Magnesium Total Bilirubin AST ALT Alkaline Phosphatase Total Creatine Kinase Total Protein Albumin Urine Color Yellow Urine Appearance Clear Urine pH 5.5 Ur Specific [place] 1.015 Urine Protein Negative Urine Glucose (UA) Negative Urine Ketones 15 Urine Blood Negative Urine Nitrite Negative Ur Leukocyte Esterase Negative Urine Opiates Screen Not Detected Ur Buprenorphine Scrn Not Detected Ur Oxycodone Screen Not Detected Urine Methadone Screen Not Detected Urine Fentanyl Screen Not Detected Ur Barbiturates Screen Not Detected Ur Phencyclidine Scrn Not Detected Ur Amphetamines Screen Not Detected U Benzodiazepines Scrn Not Detected Urine Cocaine Screen Not Detected U Marijuana (THC) Screen POSITIVE H Influenza Type A (PCR) Influenza Type B (PCR) RSV RNA Qual (PCR) SARS-CoV-2 RNA (RT-PCR) Imaging CT scan - head: Radiologist's impression: IMPRESSION: 1. No acute intracranial findings This document has been electronically signed by: Yen Ac MD on 06/11/2024 14:39:12 Discharge Plan Discharge Anticipated Discharge Date/Time: 06/12/24 13:01 Patient Disposition: Home, Self-Care Discharge Diagnosis: Seizure disorder Referrals: Katie Gaona MD [Primary Care Provider] - 1 Week Discharge Medications: New levetiracetam 750 mg tablet 750 mg PO BID Qty: 180 0RF Continued alprazolam 1 mg tablet 1 mg PO DAILY alprazolam 1 mg tablet 2 mg PO BEDTIME Qty: 20 0RF escitalopram oxalate 10 mg tablet 10 mg PO DAILY (DME) blood-glucose meter [FreeStyle Lite Meter] Kit See Rx Instructions .Route Qty: 1 0RF Rx Instructions: As directed (DME) FreeStyle Lite Strips Strip See Rx Instructions .Route Qty: 100 1RF Rx Instructions: Use 1 test strip once a day (DME) lancets [FreeStyle Lancets] 28 gauge misc See Rx Instructions .Route Qty: 100 2RF Rx Instructions: Use 1 lancet once a day Discharge Orders: Discharge Order (Routine); Ordered 06/12/24 Ordered By: Joan Mejias Diet: Advance to usual diet Activity on Discharge: As tolerated Stand Alone Forms: Patient Portal Discharge page Print Language: Indian Care Plan Goals: Start Keppra 750 mg two times a day for Seizure disorder Avoid Alcohol Follow up with Dr Mccrary office for further work up Health Concerns: Seizure disorder Plan of Treatment: Keppra Neurology follow up Assessment: as above
== END 2024-06-12 14:45 | disposition home or self-care (01) ==
LOC: HO.ED 15:11 → HO.EDOVER 15:51 → HO.IMC 17:19
PROVIDERS: Registered Nurse Emergency; Admitting Provider Student in an Organized Health Care Education/Training Program; Emergency Provider Emergency Medicine; PCP Internal Medicine; Visit Provider Student in an Organized Health Care Education/Training Program
DX: G40.909 Epilepsy, unspecified, not intractable, without status epilepticus (principal); R51.9 Headache, unspecified; R11.0 Nausea; I10 Essential (primary) hypertension; H90.42 Sensorineural hearing loss, unilateral, left ear, with unrestricted hearing on the contralateral side; Z03.818 Encounter for observation for suspected exposure to other biological agents ruled out; Z79.899 Other long term (current) drug therapy
CPT/HCPCS: 0241U; 36415; 70450; 71046; 80048; 80053; 80307; 81003; 82550; 82947; 83036; 83605; 83735; 84484; 85025; 85027; 85610; 93005; 96361; 96365; 96372; 96375; 99222; 99285; J1650; J1953; J2060

== ENCOUNTER → 2024-06-11 12:11 | Outpatient (BNV) | payer OTHER, SELFPAY | PROVIDERS: Emergency Provider Emergency Medicine; PCP Internal Medicine; Visit Provider Radiology Diagnostic Radiology | DX: G40.89 Other seizures (principal) | CPT/HCPCS: 70450; 71046 ==

== ENCOUNTER → 2024-06-11 12:13 | Outpatient (BNV) | payer OTHER, SELFPAY | PROVIDERS: Admitting Provider Student in an Organized Health Care Education/Training Program; Emergency Provider Emergency Medicine; PCP Internal Medicine; Visit Provider Internal Medicine | DX: R56.9 Unspecified convulsions (principal) | CPT/HCPCS: 93010 ==

== ENCOUNTER → 2024-06-11 15:39 | Outpatient (BNV) | payer OTHER, SELFPAY | PROVIDERS: Admitting Provider Student in an Organized Health Care Education/Training Program; Emergency Provider Emergency Medicine; PCP Internal Medicine; Visit Provider Student in an Organized Health Care Education/Training Program | DX: R56.9 Unspecified convulsions (principal) | CPT/HCPCS: 99238 ==

== ENCOUNTER 2024-12-13 19:44 | Emergency (ER) | payer OTHER, SELFPAY ==
[2024-12-13 19:45] VITALS: BP 133/88; PULSE 76; RESP 20; TEMP 37.4; O2SAT 98; BMI 21.9
--- NOTE | 2024-12-13 19:47 | ED.GENADULT ---
HPI - General Adult General Chief complaint: Upper Respiratory Symptoms Stated complaint: flu like symptoms Time Seen by Provider: 12/13/24 22:34 Source: patient Mode of arrival: ambulatory History of Present Illness ED Provider: Delphine Saez PA-C HPI narrative: Patient reports to emergency department today for evaluation of flu-like syndrome. For the last 2 days he has had fevers chills body aches along with feeling tired. He denies having a cough or sore throat but does have a headache. He has not had any nausea or vomiting or diarrhea. His daughter has known influenza; he has not traveled anywhere. He is able tolerate p.o. fluids and void regularly. He denies any falls or trauma no paresthesias. He has not taken anything for his symptoms. Related Data Home Medications ?Medication ?Instructions ?Recorded ?Confirmed escitalopram oxalate 10 mg tablet 10 mg PO DAILY 03/04/21 06/11/24 alprazolam 1 mg tablet 1 mg PO DAILY 06/11/24 06/11/24 Previous Rx's ?Medication ?Instructions ?Recorded blood sugar diagnostic (FreeStyle #100 ea 09/07/23 Lite Strips) blood-glucose meter (FreeStyle #1 ea 09/07/23 Lite Meter kit) lancets 28 gauge (FreeStyle #100 ea 09/07/23 Lancets) alprazolam 1 mg tablet 2 mg (2 x 1 mg) PO BEDTIME anxiety 06/12/24 #20 tabs levetiracetam 750 mg tablet 750 mg PO BID #180 tabs 06/12/24 acetaminophen 500 mg tablet 500 mg PO Q6H PRN fever or pain 12/13/24 (Tylenol Extra Strength) #30 tabs oseltamivir 75 mg capsule (Tamiflu) 75 mg PO BID 5 days #10 caps 12/13/24 Allergies Allergy/AdvReac Type Severity Reaction Status Date / Time hydrochlorothiazide Allergy Unknown chills Verified 12/13/24 19:48 ibuprofen Allergy Unknown stomach Verified 12/13/24 19:48 upset Review of Systems Review of Systems: Yes all other systems are reviewed and are negative PMFSH Past Medical History Attestation statement: The following information was validated with the patient. Source: old records reviewed and nursing notes reviewed Medical History New onset seizure COVID-19 Insomnia CELESTE (generalized anxiety disorder) Mild recurrent major depression Deafness in left ear HTN (hypertension) Surgical History History of surgery of head Family History Family History Father HTN (hypertension) Arthritis Mother HTN (hypertension) Diabetes mellitus Cancer Maternal Uncle Colon cancer Social History Social History Household Members: Spouse Housing: House Do you presently have visiting nurse or other home services: No Alcohol intake: current Alcohol intake frequency: holidays/special occasions only Alcohol type: beer Patient Tobacco Use Status: Current someday Tobacco user Tobacco use type: Cigarette Cigarettes Per Day: 1 e-Cigarette/Vaping Use: Never Used Second Hand Smoke Exposure: Yes Substance Use Type: Marijuana Advance Directives: No Advance Directives Information Provided: No Do you have a plan to hurt others: No Plan service: No Current occupational status: disabled Cognitive needs: No Hearing needs: No Vision needs: No Physical Exam ED Vital Signs: Vital Signs - 24 hr 12/13/24 19:45 Temperature 99.4 F Pulse Rate 76 Respiratory Rate 20 Blood Pressure 133/88 Pulse Oximetry 98 Oxygen Delivery Method Room Air BMI result Body Mass Index 21.9 General: Appears in no acute distress, appears well nourished body habitus is normal, appears stated age. No septic or ill-appearing but appears fatigued. Vitals reviewed normal, PMH/Social and Surgical hx reviewed including allergies and current medications. - reviewed for prior visits here Eyes: EOMI. conjunctiva and sclera clear ENMT: moist oral mucosa, no edematous nasal turbinates, erythema, or purulent d/c noted. No erythema, normal appearing and intact tympanic membrane. Hearing intact. No mastoid tenderness b/l. Normal posterior pharynx and structures. Uvula is midline no trismus. Neck: trachea midline, no lymphadenopathy. No nuchal rigidity. Cardiovascular: peripheral perfusion normal, S1 and S2 present, no M/R/G. RRR Respiratory: no respiratory distress, lungs clear to auscultation b/l, respirations full and symmetric. No flail chest, chest wall tenderness or crepitus noted. Speaking in full smooth sentences. Abdomen: nondistended Extremities: Warm and appear well perfused. Moving extremities without difficulty. Psych: Cooperative, calm. Neuro: Alert and orientated. No obvious focal deficits. Course Course Course Narrative: This is a Rapid Medical Examination (RME) performed by Mary Caba PA-C in triage. Full HPI, ROS, assessment and treatment plan per primary provider in the Main ED. Hx: 49 yo M here w/ myalgias, fever, sneezing x2 days. daughter tested positive for flu today. Plan: viral testing. Medical Decision Making Medical Decision Making [facility] Narrative: + fever, sore throat, malaise consistent with viral illness such as Influenza. Patient not from SNF, chronically ill or immunosuppressed. Given History and Exam I have a lower suspicion for: Emergent CardioPulmonary causes such as Acute Asthma or COPD Exacerbation, acute Heart Failure or exacerbation, PE, PTX, atypical ACS, PNA. Emergent Otolaryngeal causes such as JEE[employer]PER[employer], RPA, Ludwigs, Epiglottitis, EBV. DETENTION score is 0. Emergent Travel or Immunosuppressive related infectious causes such as acute HIV, SARS, MERS. COVID neg. AOm/AOE: no erythema Rx: Given patient symptomatic less than 48hrs will instruct on conservative self-care and techniques to reduce spread for this suspected transient and self-resolving? illness and Rx for Tamiflu. He also requested rx for tylenol ES. Sent. Disposition: Discharge with strict return precautions. Follow up with primary care provider. Differential Diagnosis Differential Diagnoses: The differential diagnosis associated with the presentation includes See [facility] Admission/Observation Consideration of admission/observation: Escalation of care including admission/observation considered Patient would have been admitted to the hospital had her work up had any findings where hospital admission was appropriate and her clinical presentation warranted hospital admission. Lab Data [facility] Lab Attestation statement: I reviewed the patient's lab results. Positive flu A, negative RSV and COVID Labs: Lab Results 12/13/24 Range/Units 19:56 Influenza Type A (PCR) POSITIVE A (Negative) Influenza Type B (PCR) NEGATIVE (Negative) RSV RNA Qual (PCR) NEGATIVE (Negative) SARS-CoV-2 RNA (RT-PCR) NEGATIVE (Negative) Tests considered The following testing was considered but not selected: Would have considered chest x-ray had patient stated that he had a cough or if his lung sound are normal but they are clear to auscultation bilaterally Prescription Management I considered prescription management with: Antiviral and Antibiotic No indication of the middle or external ear infection pneumonia or strep to warrant oral antibiotics DETENTION score 0 testing not indicated for strep Discharge Plan Discharge Clinical Impression: Influenza A Patient Disposition: Home, Self-Care Instructions: Influenza (ED) Additional Instructions: You were seen in the emergency department for your fever,congestion, and muscle aches.? Your exam was reassuring. Your flu swab was positive.? You tested negative for COVID and RSV. Rest, stay well hydrated. Take Tylenol and/or Motrin as needed for fever or muscle aches. Please be re-evaluated if you are not starting to feel better or if still having fevers after 5-7 days of illness You should avoid crowds, public places, school, hotels, elderly, infants, or people with compromised immune systems until 24 hours after your fevers stop and your symptoms are improved. Return to the ED if you develop a severe headache, neck stiffness, intractable vomiting, trouble breathing, shortness of breath, or any other new, concerning symptoms.? Prescriptions: New oseltamivir [Tamiflu] 75 mg capsule 75 mg PO BID 5 Days Qty: 10 0RF acetaminophen [Tylenol Extra Strength] 500 mg tablet 500 mg PO Q6H PRN (Reason: fever or pain) Qty: 30 0RF No Action alprazolam 1 mg tablet 1 mg PO DAILY levetiracetam 750 mg tablet 750 mg PO BID Qty: 180 0RF alprazolam 1 mg tablet 2 mg PO BEDTIME Qty: 20 0RF escitalopram oxalate 10 mg tablet 10 mg PO DAILY (DME) blood-glucose meter [FreeStyle Lite Meter] Kit See Rx Instructions .Route Qty: 1 0RF Rx Instructions: As directed (DME) FreeStyle Lite Strips Strip See Rx Instructions .Route Qty: 100 1RF Rx Instructions: Use 1 test strip once a day (DME) lancets [FreeStyle Lancets] 28 gauge misc See Rx Instructions .Route Qty: 100 2RF Rx Instructions: Use 1 lancet once a day Referrals: Katie aGona MD [Primary Care Provider, Internal Medicine] Referral Note: Influenza follow up from ED Stand Alone Forms: Work/School Release Interventions: ED Discharge Assessment Last Done: 12/13/24 22:53 Discharge Date/Time: 12/13/24 22:54 Print Language: Indonesian
[2024-12-13 20:39] LABS: Resp Syncy Virus RNA Qual PCR NEGATIVE (Negative); SARS COV2 PCR INHOUSE NEGATIVE (Negative)
[2024-12-13 22:53] VITALS: BP 133/88; PULSE 76; RESP 20; TEMP 37.4; O2SAT 98
== END 2024-12-13 22:54 | disposition home or self-care (01) ==
PROVIDERS: Physician Assistant Medical; Emergency Provider Emergency Medicine; PCP Internal Medicine
DX: J10.1 Influenza due to other identified influenza virus with other respiratory manifestations (principal); R50.9 Fever, unspecified; I10 Essential (primary) hypertension; F17.210 Nicotine dependence, cigarettes, uncomplicated; F12.90 Cannabis use, unspecified, uncomplicated; Z79.899 Other long term (current) drug therapy
CPT/HCPCS: 87637; 99282; 99283

== ENCOUNTER → 2025-01-23 14:12 | Outpatient (BNV) | payer OTHER, SELFPAY | PROVIDERS: PCP Internal Medicine; Visit Provider Radiology Diagnostic Radiology | DX: R07.89 Other chest pain (principal) | CPT/HCPCS: 71046 ==

== ENCOUNTER 2025-01-23 14:19 | Emergency (ER) | payer OTHER, SELFPAY ==
--- NOTE | 2025-01-23 | ECG_ITS ---
Test Reason : FALL Blood Pressure : */* mmHG Vent. Rate : 69 BPM Atrial Rate : 69 BPM P-R Int : 138 ms QRS Dur : 108 ms QT Int : 364 ms P-R-T Axes : 64 71 50 degrees QTcB Int : 390 ms Normal sinus rhythm Minimal voltage criteria for LVH, may be normal variant ( [place] product ) Borderline ECG When compared with ECG of 11-Jun-2024 12:13, No significant change was found Referred By: Generic ED Physician Electronically Signed By: JED VALDEZ
--- NOTE | ~2025-01-23 | XR_ITS ---
EXAMINATION: XR CHEST CLINICAL INFORMATION: CP, trauma COMPARISON: 06/11/2024. 05/06/2018. TECHNIQUE: 2 views of the chest were obtained. FINDINGS: The cardiac, hilar, and mediastinal contours are normal. There is a mildly elevated left hemidiaphragm. The lungs are clear bilaterally. There is no pneumothorax or pleural effusion. There is no focal osseous or soft tissue abnormality. No bony fracture evident. XR/XR chest 2V IMPRESSION: No acute thoracic abnormality. Electronically signed by: Willie Singh MD 01/23/2025 03:20 PM EDT
[2025-01-23 14:39] VITALS: BP 125/73; PULSE 92; RESP 18; TEMP 37.1; O2SAT 97; BMI 23.1
--- NOTE | 2025-01-23 14:48 | ED.GENADULT ---
HPI - General Adult General Chief complaint: Fall Stated complaint: fell, hit chest, swollen, painful Time Seen by Provider: 01/23/25 18:07 Source: patient Limitations: language barrier History of Present Illness ED Provider: April Curiel PA-C HPI narrative: 49-year-old otherwise healthy male presents after fall. Patient states he tripped and fell over an object last night, falling landing on his chest. Now with the anterior upper chest wall pain. Related Data Home Medications ?Medication ?Instructions ?Recorded ?Confirmed escitalopram oxalate 10 mg tablet 10 mg PO DAILY 03/04/21 06/11/24 alprazolam 1 mg tablet 1 mg PO DAILY 06/11/24 06/11/24 Previous Rx's ?Medication ?Instructions ?Recorded blood sugar diagnostic (FreeStyle #100 ea 09/07/23 Lite Strips) blood-glucose meter (FreeStyle #1 ea 09/07/23 Lite Meter kit) lancets 28 gauge (FreeStyle #100 ea 09/07/23 Lancets) alprazolam 1 mg tablet 2 mg (2 x 1 mg) PO BEDTIME anxiety 06/12/24 #20 tabs levetiracetam 750 mg tablet 750 mg PO BID #180 tabs 06/12/24 acetaminophen 500 mg tablet 500 mg PO Q6H PRN fever or pain 12/13/24 (Tylenol Extra Strength) #30 tabs oseltamivir 75 mg capsule (Tamiflu) 75 mg PO BID 5 days #10 caps 12/13/24 Allergies Allergy/AdvReac Type Severity Reaction Status Date / Time hydrochlorothiazide Allergy Unknown chills Verified 01/23/25 14:42 ibuprofen Allergy Unknown stomach Verified 01/23/25 14:42 upset Review of Systems Review of Systems: Yes all other systems are reviewed and are negative Constitutional: Constitutional: Denies fatigue and Denies fever(s) ENT: Denies neck pain Cardiovascular: Cardiovascular: Reports chest pain and Denies dyspnea Respiratory: Respiratory: Denies dyspnea Musculoskeletal: Musculoskeletal: Denies back pain and Denies neck pain Endocrine: Endocrine: Denies fatigue PMFSH Past Medical History Attestation statement: The following information was validated with the patient. Medical History New onset seizure COVID-19 Insomnia CELESTE (generalized anxiety disorder) Mild recurrent major depression Deafness in left ear HTN (hypertension) Surgical History History of surgery of head Family History Family History Father HTN (hypertension) Arthritis Mother HTN (hypertension) Diabetes mellitus Cancer Maternal Uncle Colon cancer Social History Social History Household Members: Spouse Housing: House Do you presently have visiting nurse or other home services: No Alcohol intake: current Alcohol intake frequency: holidays/special occasions only Alcohol type: beer Patient Tobacco Use Status: Current someday Tobacco user Tobacco use type: Cigarette Cigarettes Per Day: 1 Smoked in Last 30 Days: No e-Cigarette/Vaping Use: Never Used Second Hand Smoke Exposure: Yes Use of substances other than those prescribed or required for medical reasons: No Substance Use Type: Marijuana Advance Directives: No Advance Directives Information Provided: No Do you have a plan to hurt others: No Plan service: No Current occupational status: disabled Cognitive needs: No Hearing needs: No Vision needs: No Physical Exam ED Vital Signs: Vital Signs - 24 hr 01/23/25 14:39 Temperature 98.8 F Pulse Rate 92 Respiratory Rate 18 Blood Pressure 125/73 Pulse Oximetry 97 Oxygen Delivery Method Room Air BMI result Body Mass Index 23.1 Const Other: Alert well-appearing Orientation/consciousness: patient oriented x3 Chest Other: No swelling, erythema or ecchymosis noted over upper anterior chest no deformity Resp Effort & Inspection: normal respiratory effort Cardio Other: Normal peripheral perfusion Skin Other: Warm dry no rash Neuro General: patient oriented x3, gait normal, no focal motor deficits and CN's II-XI intact bilaterally Psych Other: Cooperative Course Course Course Narrative: Rapid medical examination performed in triage by Chen Esqueda PA-C. Patient is a 49 year old assigned male at presenting to the emergency department with right sided chest pain after a mechanical fall. Detailed physical exam and review of systems are deferred to the medical claims manager. Labs and imaging ordered. Patient placed back in the waiting room pending room availability and results. Medical Decision Making Medical Decision Making MDM Narrative: 49-year-old otherwise healthy male presents after fall. Patient states he tripped and fell over an object last night, falling landing on his chest. Now with the anterior upper chest wall pain. No chronic issues History: Per patient I have considered the following differential diagnoses: Chest wall contusion, rib fracture, pneumothorax, ACS Plan: ACS was considered from triage, EKG screening labs and troponin obtained. This is not consistent with ACS, the patient has sustained in a mechanical fall. Chest x-ray reveals no rib fracture, we will treat for chest wall contusion. I have independently reviewed the following tests: Labs: No leukocytosis, not anemic, no electrolyte abnormality, troponin less than 2.7 EKG: Normal sinus rhythm, rate of 69, no ischemic changes no ectopy Chest x-ray:FINDINGS: The cardiac, hilar, and mediastinal contours are normal. There is a mildly elevated left hemidiaphragm. The lungs are clear bilaterally. There is no pneumothorax or pleural effusion. There is no focal osseous or soft tissue abnormality. No bony fracture evident. XR/XR chest 2V IMPRESSION: No acute thoracic abnormality. Differential Diagnosis Differential Diagnoses: The differential diagnosis associated with the presentation includes See [facility] Admission/Observation Consideration of admission/observation: Escalation of care including admission/observation considered Not applicable Lab Data [facility] Lab Attestation statement: I reviewed the patient's lab results. 01/23/25 15:29 01/23/25 15:29 Labs: Lab Results 01/23/25 Range/Units 15:29 WBC 7.7 (4.8-10.8) X10*3/uL RBC 6.12 H (4.60-5.80) X10*6/uL Hgb 14.6 (14.0-18.0) g/dl Hct 46.3 (42.0-52.0) % MCV 75.7 L (80.0-98.0) fL MCH 23.9 L (27.0-33.0) pg MCHC 31.5 (31.0-36.0) g/dl RDW 17.5 H (11.0-16.0) % Plt Count 317 (160-400) X10*3/uL MPV 8.7 L (9.4-12.4) fL Immature Gran % (Auto) 0.4 (0.0-0.4) % Neut % (Auto) 67.5 (45-73) % Lymph % (Auto) 25.0 (20-40) % Benson % (Auto) 5.2 (2-11) % Eos % (Auto) 0.9 (0-4) % Baso % (Auto) 1.0 (0-2) % Lymph # (Auto) 1.9 (1.2-4.9) X10*3/uL Benson # (Auto) 0.4 (0.1-1.2) X10*3/uL Eos # (Auto) 0.1 (0.0-0.4) X10*3/uL Baso # (Auto) 0.1 (0.0-0.2) X10*3/uL Abs Immat Gran (auto) 0.03 (0.00-0.03) X10*3/uL Absolute Neuts (auto) 5.2 (2.0-8.3) x10*3/uL Absolute Nucleated RBC 0.000 (0.0-0.012) X10*3/uL Nucleated RBC % (auto) 0.0 (0.0-0.2) /100WBC Sodium 139 (135-145) mmol/L Potassium 4.1 (3.3-5.1) mmol/L Chloride 102 (96-108) mmol/L Carbon Dioxide 28 (22-29) mmol/L Anion Gap 13 (12-20) BUN 12 (9-16) mg/dL Creatinine 1.22 (0.5-1.4) mg/dL Estim Creat Clear Calc 85.5 Estimated GFR > 60 Random Glucose 117 H (60-115) mg/dL Calcium 8.6 (8.4-10.2) mg/dL Troponin I High Sens < 2.7 (<3.5-35.0) ng/L Radiology Impression Discussion of test interpretation with radiology: I have reviewed the radiologist's reading. Discharge Plan Discharge Clinical Impression: Chest wall contusion Patient Disposition: Home, Self-Care Instructions: Chest Contusion (ED) Additional Instructions: All of your screening labs including a cardiac enzymes were normal. There were no concerning changes on your EKG the chest x-ray is clear you did not sustain a rib fracture. You have a chest wall contusion. See home care instructions. You can ice the area or apply heat, whatever feels best. You can use [id number] ibuprofen 600 mg taken every 6 hours with food, alternated with [id number] Tylenol 1000 mg taken every 8 hours. Follow up with primary care as needed. Prescriptions: No Action alprazolam 1 mg tablet 1 mg PO DAILY levetiracetam 750 mg tablet 750 mg PO BID Qty: 180 0RF alprazolam 1 mg tablet 2 mg PO BEDTIME Qty: 20 0RF oseltamivir [Tamiflu] 75 mg capsule 75 mg PO BID 5 Days Qty: 10 0RF acetaminophen [Tylenol Extra Strength] 500 mg tablet 500 mg PO Q6H PRN (Reason: fever or pain) Qty: 30 0RF escitalopram oxalate 10 mg tablet 10 mg PO DAILY (DME) blood-glucose meter [FreeStyle Lite Meter] Kit See Rx Instructions .Route Qty: 1 0RF Rx Instructions: As directed (DME) FreeStyle Lite Strips Strip See Rx Instructions .Route Qty: 100 1RF Rx Instructions: Use 1 test strip once a day (DME) lancets [FreeStyle Lancets] 28 gauge misc See Rx Instructions .Route Qty: 100 2RF Rx Instructions: Use 1 lancet once a day Stand Alone Forms: Work/School Release Print Language: Greek
[2025-01-23 15:37] LABS: MANUAL DIFF FLAG NO
[2025-01-23 15:38] LABS: Hematocrit 46.3 % (42.0-52.0); Hemoglobin 14.6 g/dl (14.0-18.0); Imm Gran Abs Auto 0.03 X10*3/uL (0.00-0.03); Imm Gran Pct Auto 0.4 % (0.0-0.4); Lymphocytes Absolute Auto 1.9 X10*3/uL (1.2-4.9); Mean Corpuscular HGB Conc 31.5 g/dl (31.0-36.0); Mean Corpuscular Hemoglobin 23.9 pg (27.0-33.0); Mean Corpuscular Volume 75.7 fL (80.0-98.0); NRBC Abs Auto 0.000 X10*3/uL (0.0-0.012); NRBC Pct Auto 0.0 /100WBC (0.0-0.2); Platelet Count 317 X10*3/uL (160-400); Red Blood Count 6.12 X10*6/uL (4.60-5.80); White Blood Count 7.7 X10*3/uL (4.8-10.8)
[2025-01-23 15:50] LABS: Anion Gap 13 (12-20); Blood Urea Nitrogen 12 mg/dL (9-16); Calcium 8.6 mg/dL (8.4-10.2); Carbon Dioxide 28 mmol/L (22-29); Chloride 102 mmol/L (96-108); Creatinine Clr Calc Pharmacy 85.5; Estimated Glomerular Filt Rate > 60; Potassium 4.1 mmol/L (3.3-5.1); Sodium 139 mmol/L (135-145)
[2025-01-23 16:01] LABS: Troponin-I High Sensitivity < 2.7 ng/L (<3.5-35.0)
[2025-01-23 18:29] VITALS: BP 132/81; PULSE 72; RESP 18; TEMP 36.8; O2SAT 97
[2025-01-23 18:30] VITALS: BP 132/81; PULSE 72; RESP 18; TEMP 36.8; O2SAT 97
== END 2025-01-23 18:33 | disposition home or self-care (01) ==
PROVIDERS: Emergency Provider Emergency Medicine; PCP Internal Medicine
DX: S20.211A Contusion of right front wall of thorax, initial encounter (principal); R94.31 Abnormal electrocardiogram [ECG] [EKG]; R07.89 Other chest pain; W01.0XXA Fall on same level from slipping, tripping and stumbling without subsequent striking against object, initial encounter; Y93.01 Activity, walking, marching and hiking; Y92.9 Unspecified place or not applicable; Y99.8 Other external cause status; Z79.899 Other long term (current) drug therapy
CPT/HCPCS: 36415; 71046; 80048; 84484; 85025; 93005; 99283; 99284

== ENCOUNTER → 2025-01-23 15:24 | Outpatient (BNV) | payer OTHER, SELFPAY | PROVIDERS: Emergency Provider Emergency Medicine; PCP Internal Medicine; Visit Provider Internal Medicine | DX: Z04.3 Encounter for examination and observation following other accident (principal); W19.XXXA Unspecified fall, initial encounter | CPT/HCPCS: 93010 ==

== ENCOUNTER 2025-03-16 17:47 | Outpatient (AMB) | payer OTHER, SELFPAY ==
[2025-03-16 17:49] VITALS: BP 108/68; PULSE 76; RESP 18; TEMP 36.2; O2SAT 98; BMI 22.4
--- NOTE | 2025-03-16 17:49 | A.OFFPC_ITS ---
Vital Signs 03/16/25 17:49 Height 6 ft 2 in Weight 174 lb 4 oz BMI 22.4 BP 108/68 Blood Pressure Location Lt brachial Position Sitting Respiration 18 Pulse 76 Pulse Source Pulse Oximeter Temp 97.1 F Temp Source Temporal Artery Scan Pulse Oximetry (%) 98 Oxygen Delivery Method Room Air Intake Visit Reasons: physical Claim Agent Required: No Accompanied by: Self / Same As Patient Allergies hydrochlorothiazide Allergy (Unknown, Verified 03/16/25 17:55) chills ibuprofen Allergy (Unknown, Verified 03/16/25 17:55) stomach upset Medication List - Last Reconciled 03/16/25 by Katie Adan MD acetaminophen (Tylenol Extra Strength) 500 mg PO Q6H PRN alprazolam 1 mg PO DAILY alprazolam 2 mg (2 x 1 mg) PO BEDTIME blood sugar diagnostic (FreeStyle Lite Strips) Use 1 test strip once a day blood-glucose meter (FreeStyle Lite Meter kit) As directed escitalopram oxalate 10 mg PO DAILY lancets (FreeStyle Lancets) Use 1 lancet once a day Tobacco use date assessed: 03/16/25 Dental Screening Dental Screen Date: 03/16/25 Did you have a dental visit in the last 12 months?: Yes Did you have a dental problem in the last 6 months where you did not have access to dental care?: No Was dental information given to patient?: Patient has dentist HPI HPI Comments History of Present Illness Details The patient is a 49-year-old male presenting for an annual physical examination. The patient has a history of hypertension, which is currently well-controlled. He reports an allergy to hydrochlorothiazide, which causes chills, and ibuprofen, which causes stomach pain. The patient is currently taking Tylenol and alprazolam for anxiety, prescribed by psychiatry. He also takes escitalopram for depression with anxiety, which is taken at night. The patient had a brain tumor removed, which was benign and has ceased growing post-surgery. He has a family history of Alzheimer's disease and cancer, with multiple family members having succumbed to cancer. The patient consumes alcohol and smokes cigarettes occasionally, but not daily. He has a PHQ-9 score of 4, indicating mild depression. In December, the patient visited the hospital for chest pain after a fall, where he landed on glass and injured his chest. He did not lose consciousness during the incident. [facility] Medical History (Updated 03/16/25 @ 18:08 by Katie Adan MD) New onset seizure COVID-19 Insomnia CELESTE (generalized anxiety disorder) Mild recurrent major depression Deafness in left ear HTN (hypertension) Surgical History History of surgery of head Family History (Updated 03/16/25 @ 18:00 by Katie Adan MD) Father HTN (hypertension) Arthritis Mother HTN (hypertension) Diabetes mellitus Cancer Alzheimer's dementia Maternal Uncle Colon cancer Social History Household Members: Spouse Housing: House Do you presently have visiting nurse or other home services: No Alcohol intake: current Alcohol intake frequency: holidays/special occasions only Alcohol type: beer Patient Tobacco Use Status: Current someday Tobacco user Tobacco use type: Cigarette Cigarettes Per Day: 1 e-Cigarette/Vaping Use: Never Used Second Hand Smoke Exposure: Yes Substance Use Type: Marijuana service: No Current occupational status: disabled Cognitive needs: No Hearing needs: No Vision needs: No Questionnaire PHQ-9 Over the last 2 weeks, how often have you been bothered by any of the following problems? 1. Little interest or pleasure in doing things: not at all 2. Feeling down, depressed, or hopeless: several days 3. Trouble falling or staying asleep, or sleeping too much: not at all 4. Feeling tired or having little energy: several days 5. Poor appetite or overeating: not at all 6. Feeling bad about yourself - or that you are a failure or have let yourself or your family down: not at all 7. Trouble concentrating on things, such as reading the newspaper or watching television: more than half the days 8. Moving or speaking so slowly that other people could have noticed. Or the opposite - being so fidgety or restless that you have been moving around a lot more than usual: not at all 9. Thoughts that you would be better off or of hurting yourself in some way: not at all Total score: 4 Depression Screening Interpretation: Positive Depression Screening Follow-up: Existing condition, In treatment, Community Mental Health Worker F/U and Follow- up Visit Requested Depression Screening Done: Yes 03647 - PHQ-9 Billing: Yes Source: Developed by Drs. Joshua Lucas, Brisa Recio, Cesar Duran and colleagues, with an educational kristy from [employer]. Thrive Questionnaire Date Thrive assessed: 02/17/24 I am a: Patient What is your living situation today?: I have a steady place to live Within the past 12 months, did the food you bought not last and you didn't have the money to get more?: Never true Within the past 12 months, did you worry whether your food would run out before you got money to buy more?: Never true Do you have trouble paying for medicines?: No Do you have trouble getting transportation to medical appointments?: No Do you have trouble paying your heating and electricity bill?: No Do you have trouble taking care of your child, family member or friend?: No Do you have trouble with day-to-day activities such as bathing, preparing meals, shopping, managing finances, etc.?: No Are you currently unemployed and looking for a job?: No Are you interested in more education?: No Please select the resources that you would like help with: None Currently or been in a relationship where the following occur: I choose not to answer THRIVE Score: 0 AUDIT C Alcohol Use Questionnaire (AUDIT-C) 1. How often do you have a drink containing alcohol?: Monthly or less 2. How many drinks containing alcohol do you have on a typical day when you are drinking?: 3 or 4 3. How often do you have six or more drinks on one occasion?: Never Total Score: 2 Score Reviewed/Action Taken: No CELESTE-7 AMB Questionnaire CELESTE-7 Date CELESTE - 7 assessed: 02/17/24 Feeling nervous, anxious, or on edge: 0 = Not at all Not being able to stop or control worryin = Not at all Worrying too much about different things: 0 = Not at all Trouble relaxin = Not at all Being so restless that it is hard to sit still: 1 = Several days Becoming easily annoyed or irritable: 0 = Not at all Feeling afraid as if something awful might happen: 0 = Not at all Total CELESTE-7 score (0-4 normal; 5-9 mild; 10-14 moderate; 15-21 severe): 1 Source: Developed by Drs. Joshua Lucas, Brisa Recio, Cesar Duran and colleagues, with an educational kristy from [employer]. CELESTE-7 Assessment Billing CELESTE-7 Assessment Tool: CELESTE-7 Assessment 84290 Review of Systems Const All systems reviewed & are unremarkable except as noted in HPI and below Eyes Reports no additional complaints, Denies change in vision and Denies other visual disturbances Card Denies chest pain at rest, Denies chest pain with activity, Denies edema, Denies irregular heart rhythm, Denies claudication, Denies dyspnea, Denies dyspnea on exertion, Denies orthopnea, Denies paroxysmal nocturnal dyspnea and Denies slow heart rate Resp Denies cough, Denies dyspnea and Denies dyspnea on exertion GI Denies abdominal pain, Denies change in bowel habits, Denies excessive flatus, Denies nausea and Denies vomiting Denies urinary hesitancy, Denies urinary incontinence and Denies urinary urgency Musc Denies abnormal gait, Denies atrophy, Denies deformity and Denies limited range of motion Skin/Breast Denies bleeding lesions, Denies changing lesions and Denies rash Neuro Denies abnormal gait, Denies behavioral changes and Denies lack of coordination Psych Denies behavioral changes Endo Denies cold intolerance Physical exam (Primary Care) Vital Signs: Last Vital Signs Temp 97.1 F 03/16/25 17:49 Pulse 76 03/16/25 17:49 Resp 18 03/16/25 17:49 BP 108/68 03/16/25 17:49 Pulse Ox 98 03/16/25 17:49 Oxygen Delivery Method Room Air 03/16/25 17:49 BMI result Body Mass Index 22.4 Tobacco/Smoking Status: Tobacco use Status Tobacco use date assessed 03/16/25 03/16/25 17:54 Patient Tobacco Use Status Current someday Tobacco 03/16/25 17:54 Tobacco use type Cigarette 03/16/25 17:54 e-Cigarette/Vaping Use Never Used 03/16/25 17:54 PHQ-9: PHQ-9 Score PHQ-9: Total score 4 03/16/25 17:54 Depression Screening Interpretation: Positive Depression Screening Follow-up: Existing condition, In treatment, Community Mental Health Worker F/U and Follow- up Visit Requested Thrive Assessment: Date of Thrive Assessment Date Thrive assessed 02/17/24 03/16/25 17:54 Currently or been in a relationship where the following occur: I choose not to answer HENMT Head: Yes normal to inspection, Yes normocephalic and Yes atraumatic Ears: external ears normal Eyes General: appearance normal, both eyes and all related structures Eyelids: Yes eyelids normal Conjunctivae: conjunctivae normal Neck Neck: Yes normal visual inspection and Yes supple Resp Effort & Inspection: normal respiratory effort Auscultation: clear to auscultation bilaterally Cardio Jugular venous distension: no JVD Rate: regular rate Rhythm: regular rhythm Heart sounds: S1 normal heart sound present and S2 normal heart sound present GI Inspection: Yes normal to inspection Palpation (GI): Soft to palpation and nontender Auscultation: normal bowel sounds Skin General skin exam: no rashes or lesions noted Neuro General: no focal motor deficits Extrem General: Yes full ROM Psych Appearance: grossly normal Coding Level of Care Code Est Pt Level 3 (69572) Est Pt Prev Care 40-64y(70553) Diagnoses Physical exam Z00.00 Abnormal brain MRI R90.89 Mild recurrent major depression F33.0 Additional Codes PHQ-9 - 22088 - PHQ-9 Billing: Yes ([id number]) CELESTE-7 Assessment Billing - CELESTE-7 Assessment Tool: CELESTE-7 Assessment 29784 ([id number]) Time Spent (min) 35 Assessment & Plan Assessment & Plan (1) Physical exam: Code(s): Z00.00 - Encounter for general adult medical examination without abnormal findings Category: Medical (2) Abnormal brain MRI: Code(s): R90.89 - Other abnormal findings on diagnostic imaging of central nervous system Category: Medical (3) Mild recurrent major depression: Code(s): F33.0 - Major depressive disorder, recurrent, mild Category: Medical Plan Plan 1. Encounter for general adult medical examination without abnormal findings Z00.00 The patient had a colonoscopy approximately 10 years ago, and it is recommended to repeat the procedure every 10 years. 2. Depression, unspecified F32.A The patient is taking escitalopram for depression with anxiety, and the current treatment plan remains unchanged. 3. Other abnormal findings on diagnostic imaging of central nervous system R90.89 The patient had a benign brain tumor removed, which has ceased growing post- surgery, and no further interventions were discussed. Orders: Orders Lipid Panel Today E78.5 - Hyperlipidemia, unspecified Comprehensive Lucien. Panel Fast Today Z00.00 - Encounter for general adult medical examination without abnormal findings MR head/brain wo con Today R90.89 - Other abnormal findings on diagnostic imaging of central nervous system
== END 2025-03-16 18:06 | disposition home or self-care (01) ==
LOC: HO.HMCH 17:48
PROVIDERS: PCP Internal Medicine; Visit Provider Internal Medicine
DX: Z00.00 Encounter for general adult medical examination without abnormal findings (principal); R90.89 Other abnormal findings on diagnostic imaging of central nervous system; F33.0 Major depressive disorder, recurrent, mild

== ENCOUNTER → 2025-03-16 17:47 | Outpatient (BNVA) | payer OTHER, SELFPAY | PROVIDERS: PCP Internal Medicine; Visit Provider Internal Medicine | DX: Z00.00 Encounter for general adult medical examination without abnormal findings (principal); I10 Essential (primary) hypertension; F41.9 Anxiety disorder, unspecified; R90.89 Other abnormal findings on diagnostic imaging of central nervous system; F33.0 Major depressive disorder, recurrent, mild; F17.210 Nicotine dependence, cigarettes, uncomplicated; Z79.899 Other long term (current) drug therapy | CPT/HCPCS: 96127; 99396 ==

== ENCOUNTER 2025-04-12 10:16 | Outpatient (REF) | payer OTHER, SELFPAY ==
--- NOTE | 2025-04-12 11:38 | EEG_ITS ---
Reason for Exam: R56.9 convulsions History: New onset seizure, Insomnia, CELESTE, Mild recurrent major depression, Deafness in left ear, HTN - Pt was apparently at work on 06/11/24 when he was seen by coworkers to have tonic-clonic type movements with foaming from the that lasted 20-30 seconds. Was subsequently postictal for EMS, though improving some by the time he was seen and evaluated in the ED. Medications: acetaminophen, alprazolam, escitalopram oxalate Technical Description Photic Stimulation: completed Hyperventilation: omitted Behavioral State: pleasant State of Consciousness: awake and sleep Skull Defect: none Sedation: none Handedness: right Duration: 32 min 52 sec Description: This is a 16 channel EEG with an EKG lead. Patient is reported awake and asleep during the tracing. Background EEG rhythm is 10-12 hertz 5-50 microvolt posteriorly lower amplitude fast anteriorly. Photic stimulation does not produce any significant driving. Hyperventilation is not performed. Patient transitioned into drowsiness light sleep. Intermittently, bifrontal sharp and slow wave complexes are noted. Cardiac lead does not reveal any significant abnormality. Impression: Abnormal EEG suggestive of underlying tendency for generalized seizure disorder MTDD
== END 2025-04-12 10:17 | disposition home or self-care (01) ==
LOC: HO.NEURO 10:16
PROVIDERS: PCP Internal Medicine; Visit Provider Internal Medicine
DX: R56.9 Unspecified convulsions (principal)
CPT/HCPCS: 95819

== ENCOUNTER → 2025-04-12 11:38 | Outpatient (BNV) | payer OTHER, SELFPAY | PROVIDERS: PCP Internal Medicine; Visit Provider Psychiatry & Neurology Neurology | DX: R94.01 Abnormal electroencephalogram [EEG] (principal) | CPT/HCPCS: 95819 ==

== ENCOUNTER 2025-04-25 06:01 | Outpatient (REF) | payer OTHER, SELFPAY ==
[2025-04-25 07:41] LABS: Alanine Aminotransferase 23 U/L (0-40); Albumin Level 3.8 g/dL (3.5-5.0); Alkaline Phosphatase 70 U/L (39-117); Anion Gap 9 (12-20); Aspartate Amino Transferase 25 U/L (5-37); Blood Urea Nitrogen 15 mg/dL (9-16); Calcium 8.7 mg/dL (8.4-10.2); Carbon Dioxide 28 mmol/L (22-29); Chloride 107 mmol/L (96-108); Cholesterol 162 mg/dL (<200); Estimated Glomerular Filt Rate > 60; HDL Cholesterol 59 mg/dL (>40); Potassium 4.3 mmol/L (3.3-5.1); Sodium 140 mmol/L (135-145); Total Protein 6.1 g/dL (6.5-8.0); Triglycerides 145 mg/dL (<150)
== END 2025-04-25 06:02 | disposition home or self-care (01) ==
LOC: HO.LAB 06:01
PROVIDERS: PCP Internal Medicine; Visit Provider Internal Medicine
DX: Z00.00 Encounter for general adult medical examination without abnormal findings (principal); E78.5 Hyperlipidemia, unspecified
CPT/HCPCS: 36415; 80053; 80061